=== PATIENT | female | born 1945 | race Caucasian/White ===

== ENCOUNTER 2018-02-20 09:11 | Day surgery (SDC) | payer OTHER ==
[~2018-02-20 09:11] MED LIST: LIDOCAINE 2% JELLY 6ML IN APPLICATOR. MM; ONDANSETRON PF 4 MG/2 ML VIAL. IV; PROCHLORPERAZINE 10 MG/2 ML VIAL. IV; fentaNYL PF VIAL 100 MCG/2 ML VIAL IV
[2018-02-20] MEDS ORDERED: LIDOCAINE 2% JELLY 6ML IN APPLICATOR. (10:05)
[2018-02-20] MEDS: PROPARACAINE 0.5% OPHTH SOLUTION 15ML BOTTLE. OS (10:24)
[2018-02-20] MEDS: PHENYLEPHRINE 10% OPHTH SOLUTION 5ML BOTTLE. OS ×3 (10:25→10:38)
[2018-02-20] MEDS: CYCLOPENTOLATE 1% OPTH SOLUTION 2ML BOTTLE. OS ×3 (10:25→10:38)
[2018-02-20] MEDS: IV RINGERS,LACTATED 1000ML 1,000 ML IV (10:31)
[2018-02-20] MEDS: CIPROFLOXACIN 0.3% OPHTH SOLUTION 5ML BOTTLE. OS (10:39)
[2018-02-20] MEDS ORDERED: MIDAZOLAM HCL/PF 2 MG/2 ML VIAL. (11:09)
[2018-02-20] MEDS: LIDOCAINE 1% PF 2 ML VIAL. ID (12:04)
[2018-02-20] MEDS: CHONDROIT-SOD-HYALURONATE KIT. (12:04)
[2018-02-20] MEDS: NEO/POLYMYX/DEXAMETH OPHTH OINTMENT 3.5GM TUBE. (12:12)
== END 2018-02-20 13:12 | disposition home or self-care (01) ==
LOC: SURG 09:11
DX: H25.12 Age-related nuclear cataract, left eye (principal); J44.9 Chronic obstructive pulmonary disease, unspecified; E03.9 Hypothyroidism, unspecified; Z72.89 Other problems related to lifestyle; Z88.2 Allergy status to sulfonamides; Z88.5 Allergy status to narcotic agent; Z79.899 Other long term (current) drug therapy; G47.33 Obstructive sleep apnea (adult) (pediatric); Z86.73 Personal history of transient ischemic attack (TIA), and cerebral infarction without residual deficits; Z87.891 Personal history of nicotine dependence; Z98.890 Other specified postprocedural states; I11.0 Hypertensive heart disease with heart failure; I50.9 Heart failure, unspecified; E78.00 Pure hypercholesterolemia, unspecified
CPT/HCPCS: 66984; C1780; J0171; J2250

== ENCOUNTER 2018-02-27 09:06 | Day surgery (SDC) | payer MEDICARE, OTHER ==
[~2018-02-27 09:06] MED LIST changes: +BALANCED SALT IRRIG OPHTH SOLN 15 ML BOTTLE.; +MORPHINE SULFATE 2 MG/ML DISP.SYRIN. IV
[2018-02-27] MEDS: IV RINGERS,LACTATED 1000ML 1,000 ML IV (09:59)
[2018-02-27] MEDS: PROPARACAINE 0.5% OPHTH SOLUTION 15ML BOTTLE. OD (10:01)
[2018-02-27] MEDS: PHENYLEPHRINE 10% OPHTH SOLUTION 5ML BOTTLE. OD ×3 (10:02→10:16)
[2018-02-27] MEDS: CYCLOPENTOLATE 1% OPTH SOLUTION 2ML BOTTLE. OD ×3 (10:02→10:16)
[2018-02-27] MEDS ORDERED: LIDOCAINE 2% JELLY 6ML IN APPLICATOR. (10:09)
[2018-02-27] MEDS ORDERED: MIDAZOLAM HCL/PF 2 MG/2 ML VIAL. (10:14)
[2018-02-27] MEDS: CIPROFLOXACIN 0.3% OPHTH SOLUTION 5ML BOTTLE. OD (10:17)
[2018-02-27] MEDS: NEO/POLYMYX/DEXAMETH OPHTH OINTMENT 3.5GM TUBE. (12:16)
[2018-02-27] MEDS: CHONDROIT-SOD-HYALURONATE KIT. (12:16)
[2018-02-27] MEDS: LIDOCAINE 1% PF 2 ML VIAL. ID (12:16)
== END 2018-02-27 13:41 | disposition home or self-care (01) ==
LOC: SURG 09:06
DX: H25.811 Combined forms of age-related cataract, right eye (principal); J44.9 Chronic obstructive pulmonary disease, unspecified; E03.9 Hypothyroidism, unspecified; Z72.89 Other problems related to lifestyle; Z79.899 Other long term (current) drug therapy; Z88.5 Allergy status to narcotic agent; Z98.42 Cataract extraction status, left eye; Z96.1 Presence of intraocular lens; E78.00 Pure hypercholesterolemia, unspecified; Z86.73 Personal history of transient ischemic attack (TIA), and cerebral infarction without residual deficits; I11.0 Hypertensive heart disease with heart failure; I50.9 Heart failure, unspecified; G47.33 Obstructive sleep apnea (adult) (pediatric); E66.9 Obesity, unspecified; Z98.890 Other specified postprocedural states; M19.90 Unspecified osteoarthritis, unspecified site; F17.200 Nicotine dependence, unspecified, uncomplicated
CPT/HCPCS: 66984; C1780; J0171; J2250

== ENCOUNTER 2019-04-28 09:10 | Emergency (ER) | payer OTHER ==
[~2019-04-28] VITALS: Ht 147.3 cm; Wt 158.8 kg
[~2019-04-28 09:10] MED LIST changes: -BALANCED SALT IRRIG OPHTH SOLN 15 ML BOTTLE.; +CRESTOR10 MG PO; +ESCI10TA2 PO; +FURO40TA4 PO; +GABA-585 PO; +GABA300C18 PO; +HYDR-2761 PO; +LEVO175T5 PO; -LIDOCAINE 2% JELLY 6ML IN APPLICATOR. MM; +LUBI8CAP4 PO; +MELA3TAB2 PO; -MORPHINE SULFATE 2 MG/ML DISP.SYRIN. IV; +NAPR220T70 PO; +ONDA4TAB11 PO; -ONDANSETRON PF 4 MG/2 ML VIAL. IV; +POTA20TA82 PO; -PROCHLORPERAZINE 10 MG/2 ML VIAL. IV; +SENN1TAB70 PO; +TRAM50TA PO; -fentaNYL PF VIAL 100 MCG/2 ML VIAL IV
--- NOTE | 2019-04-28 09:37 | PHYS DOC ---
Past Medical History Past Medical History: COPD, Sciatica, Other Additional Past Medical Histor: SLEEP APNEA,CHRONIC PAIN Past Surgical History: Other Additional Past Surgical Histo: UNKNOWN Alcohol Use: None Drug Use: None Adult General Chief Complaint Chief Complaint: MECHANICAL FALL HPI HPI Patient is a 73 year old female who presents with hx of hypertension, chronic right hip pain with sciatica, COPD, morbidly obesity who presents to the ED today complaining of 8 out of 10 right heel pain that began today after she slid out of her bed while trying to get dressed and fell, she states her right foot got caught in her electric wheelchair. Patient describes the pain as throbbing worse on movement. She states immobilization relieves the pain. Patient denies hitting her head on the ground. Denies any loss of consciousness. Denies any neck mid or low back pain. Review of Systems Review of Systems Constitutional: Denies fever or chills [] Eyes: Denies change in visual acuity, redness, or eye pain [] HENT: Denies nasal congestion or sore throat [] Respiratory: Denies cough or shortness of breath [] Cardiovascular: No additional information not addressed in HPI [] GI: Denies abdominal pain, nausea, vomiting, bloody stools or diarrhea [] : Denies dysuria or hematuria [] Musculoskeletal: Reports right hip pain Integument: Denies rash or skin lesions [] Neurologic: Denies headache, focal weakness or sensory changes [] All other systems were reviewed and found to be within normal limits, except as documented in this note. Allergies Allergies Allergies Coded Allergies Type Severity Reaction Last Updated Verified No Known Drug Allergies 05/01/18 No Physical Exam Physical Exam Constitutional: Morbidly obese patient, no acute distress, non-toxic appearance. [] HENT: Normocephalic, atraumatic, bilateral external ears normal, oropharynx moist, no oral exudates, nose normal. [] Eyes: PERRLA, EOMI, conjunctiva normal, no discharge. [] Neck: Normal range of motion, no tenderness, supple, no stridor. [] Cardiovascular:Heart rate regular rhythm, no murmur [] Lungs & Thorax: Chronic oxygen use noted. Bilateral breath sounds clear to auscultation [] Abdomen: Bowel sounds normal, soft, no tenderness, no masses, no pulsatile masses. [] Skin: Warm, dry, no erythema, no rash. [] Back: No tenderness, no CVA tenderness. [] Extremities: Morbidly obese patient, bilateral lower extremities with no obvious deformity. Chronic lymphedema noted to bilateral lower extremities with slight erythema to medial lower extremities, mild tenderness on palpation of the right heel. limited range of motion to bilateral lower extremities. +1 bilateral pedal pulses. Cap refill less than 2 seconds bilateral lower extremities. Neurologic: Alert and oriented X 3, normal motor function, normal sensory function, no focal deficits noted. [] Psychologic: Affect normal, judgement normal, mood normal. [] Current Patient Data Vital Signs Vital Signs Date Time Temp Pulse Resp B/P (MAP) Pulse Ox O2 Delivery O2 Flow Rate FiO2 04/28/19 09:10 97.8 74 21 145/62 (89) 95 Nasal Cannula 2.0 97.8 Lab Values Laboratory Tests Test 04/28/19 11:53 04/28/19 13:37 White Blood Count 6.4 x10^3/uL (4.0-11.0) Red Blood Count 4.01 x10^6/uL (3.50-5.40) Hemoglobin 11.4 g/dL (12.0-15.5) L Hematocrit 35.3 % (36.0-47.0) L Mean Corpuscular Volume 88 fL (79-100) Mean Corpuscular Hemoglobin 28 pg (25-35) Mean Corpuscular Hemoglobin Concent 32 g/dL (31-37) Red Cell Distribution Width 15.7 % (11.5-14.5) H Platelet Count 188 x10^3/uL (140-400) Neutrophils (%) (Auto) 70 % (31-73) Lymphocytes (%) (Auto) 19 % (24-48) L Monocytes (%) (Auto) 7 % (0-9) Eosinophils (%) (Auto) 3 % (0-3) Basophils (%) (Auto) 1 % (0-3) Neutrophils # (Auto) 4.5 x10^3/uL (1.8-7.7) Lymphocytes # (Auto) 1.2 x10^3/uL (1.0-4.8) Monocytes # (Auto) 0.5 x10^3/uL (0.0-1.1) Eosinophils # (Auto) 0.2 x10^3/uL (0.0-0.7) Basophils # (Auto) 0.0 x10^3/uL (0.0-0.2) Sodium Level 140 mmol/L (136-145) Potassium Level 4.6 mmol/L (3.5-5.1) Chloride Level 98 mmol/L (98-107) Carbon Dioxide Level 39 mmol/L (21-32) H Anion Gap 3 (6-14) L Blood Urea Nitrogen 29 mg/dL (7-20) H Creatinine 1.2 mg/dL (0.6-1.0) H Estimated GFR (Cockcroft-Gault) 44.2 BUN/Creatinine Ratio 24 (6-20) H Glucose Level 104 mg/dL (70-99) H Calcium Level 8.6 mg/dL (8.5-10.1) Total Bilirubin 0.8 mg/dL (0.2-1.0) Aspartate Amino Transferase (AST) 17 U/L (15-37) Alanine Aminotransferase (ALT) 13 U/L (14-59) L Alkaline Phosphatase 92 U/L (46-116) WE-Asx-D-Type Natriuretic Peptide 182 pg/mL (0-124) H Total Protein 7.1 g/dL (6.4-8.2) Albumin 3.2 g/dL (3.4-5.0) L Albumin/Globulin Ratio 0.8 (1.0-1.7) L Urine Collection Type U cath Urine Color Yellow Urine Clarity Clear Urine pH 7.0 Urine Specific Mamou 1.015 Urine Protein Negative mg/dL (NEG-TRACE) Urine Glucose (UA) Negative mg/dL (NEG) Urine Ketones (Stick) Negative mg/dL (NEG) Urine Blood Negative (NEG) Urine Nitrite Negative (NEG) Urine Bilirubin Negative (NEG) Urine Urobilinogen Dipstick 1.0 mg/dL (0.2 mg/dL) Urine Leukocyte Esterase Negative (NEG) Urine RBC 0 /HPF (0-2) Urine WBC 0 /HPF (0-4) Urine Squamous Epithelial Cells Few /LPF Urine Transitional Epithelial Cells Occ /LPF Urine Bacteria 0 /HPF (0-FEW) Laboratory Tests 04/28/19 11:53 Laboratory Tests 04/28/19 11:53 EKG EKG [] Radiology/Procedures Radiology/Procedures []PROCEDURE: VENOUS LOWER EXT BILATERAL Examination: Bilateral Lower Extremity Venous Doppler Ultrasound History: Bilateral lower extremity swelling Comparison: None Procedure: Long scale, color flow 2D and spectal waveform analysis images are obtained with and without compression in the area of the common femoral vein, superficial femoral vein - femoral vein junction, main femoral vein (superficial femoral vein) and popliteal vein. Veins of the proximal calf are also imaged. Findings: There is normal duplex flow, color flow and compressibility of all visualized vein segments. No evidence of deep venous thrombus is present. The bilateral posterior tibialis vein and peroneal veins could not be identified due to soft tissue edema and the patient body habitus. Limited study. Impression: 1. Limited study due to patient body habitus and soft tissue edema in the lower legs. 2. No evidence of deep venous thrombus in the visualized bilateral lower extremity venous system. Electronically signed by: Sy Almanzar MD (04/28/2019 12:28 PM) [id number] DICTATED and SIGNED BY: SY ALMANZAR MD DATE: 04/28/19 1228 PROCEDURE: FOOT RIGHT 3V Examination: FOOT RIGHT 3V History: Pain Comparison/Correlation: None Findings: Total of 3 images of the right foot were obtained. This includes crosstable lateral view. True lateral positioning was not obtained and as result evaluation is limited. Osteopenia is notable. No acute fracture or bony destruction. Relative short third and fourth metatarsal bones noted and this is presumably developmental. Linear lucent deformity of the posterior calcaneus at the plantar surface is of indeterminate significance. Impression: Marked osteopenia. Linear lucency of the posterior calcaneus of indeterminate significance. Correlate with prior exams if available. Dedicated lateral view should be considered for further assessment if clinically desired. Electronically signed by: Beltran Novak MD (04/28/2019 9:47 AM) [id number] DICTATED and SIGNED BY: BELTRAN NOVAK MD DATE: 04/28/19 0947 PROCEDURE: FOOT RIGHT 2V EXAM: 2 views right foot DATE: 04/28/2019 9:57 AM INDICATION: Right foot pain COMPARISON: No Prior FINDINGS/ IMPRESSION: 1. Marked osteopenia 2. Avulsion type fracture of the posterior/superior calcaneus with diffuse Achilles tendon thickening, possibly tendinosis or tear. 3. Marked soft tissue swelling about the right foot. Electronically signed by: Leandro Singer MD (04/28/2019 10:42 AM) [facility] [place] DICTATED and SIGNED BY: LEANDRO SINGER MD DATE: 04/28/19 1042 Course & Med Decision Making Course & Med Decision Making Pertinent Labs and Imaging studies reviewed. (See chart for details) This is a 73-year-old morbidly obese patient presenting to the ED today complaining of right heel pain after getting it caught in her electric wheelchair. Right foot x-rays interpreted by radiologist- Avulsion type fracture of the posterior/superior calcaneus with diffuse Achilles tendon thickening, possibly tendinosis or tear. Spoke with Dr. Lopes, he requested we put patient in a posterior leg splint and have recent follow-up in the clinic. Patient's daughter to the ED she requesting we will get venous Doppler of patient bilateral lower extremities because patient was diagnosed with lymphedema and he supposed to have venous Doppler is done on Sunday. She states she can't wait until then she is concerned patient could have a blood clot. Venous Dopplers of bilateral lower extremities were negative for any acute findings. Labs are negative. Patient was discharged to home. Follow-up with PCP and orthopedic doctor in the course of this week or next week. Patient was placed in posterior leg splint by the airbrush artist technical, neurovascular exam is intact Dragon Disclaimer Dragon Disclaimer This electronic medical record was generated, in whole or in part, using a voice recognition dictation system. Departure Departure Impression: Primary Impression: Closed fracture of heel bone Additional Impression: Lymphedema Disposition: HOME, SELF-CARE Condition: STABLE Referrals: LA[facility] PANCHAL MD (PCP) follow up this week LINDA LOPES MD follow up this week Patient Instructions: Avulsion Fracture Additional Instructions: You were evaluated in the emergency, and noted to have avulsion fracture of the heel. Try to ice and elevate the extremity. Follow-up with the orthopedic doctor provided as well as your primary care doctor in the course of this week. Problem Qualifiers Primary Impression: Closed fracture of heel bone Encounter type: initial encounter Calcaneus location: tuberosity Fracture morphology: avulsion Fracture alignment: nondisplaced Laterality: right Qualified Codes: S92.034A - Nondisplaced avulsion fracture of tuberosity of right calcaneus, initial encounter for closed fracture SUZANNE GRAVES APRN Apr 28, 2019 09:37
--- NOTE | 2019-04-28 09:50 | RAD ---
Examination: FOOT RIGHT 3V History: Pain Comparison/Correlation: None Findings: Total of 3 images of the right foot were obtained. This includes crosstable lateral view. True lateral positioning was not obtained and as result evaluation is limited. Osteopenia is notable. No acute fracture or bony destruction. Relative short third and fourth metatarsal bones noted and this is presumably developmental. Linear lucent deformity of the posterior calcaneus at the plantar surface is of indeterminate significance. Impression: Marked osteopenia. Linear lucency of the posterior calcaneus of indeterminate significance. Correlate with prior exams if available. Dedicated lateral view should be considered for further assessment if clinically desired. Electronically signed by: Beltran Sparrow MD (04/28/2019 9:47 AM) [id number]
--- NOTE | 2019-04-28 10:44 | RAD ---
EXAM: 2 views right foot DATE: 04/28/2019 9:57 AM INDICATION: Right foot pain COMPARISON: No Prior FINDINGS/ IMPRESSION: 1. Marked osteopenia 2. Avulsion type fracture of the posterior/superior calcaneus with diffuse Achilles tendon thickening, possibly tendinosis or tear. 3. Marked soft tissue swelling about the right foot. Electronically signed by: Leandro Dahl MD (04/28/2019 10:42 AM) [facility]
[2019-04-28 12:12] LABS: BASO % 1 % (0-3); EOS # 0.2 x10^3/uL (0.0-0.7); EOS % 3 % (0-3); HEMATOCRIT 35.3 % (36.0-47.0); HEMOGLOBIN 11.4 g/dL (12.0-15.5); LYMPH # 1.2 x10^3/uL (1.0-4.8); LYMPH % 19 % (24-48); MEAN CORPUSCULAR HEMOGLOBIN 28 pg (25-35); MEAN CORPUSCULAR HGB CONC 32 g/dL (31-37); MEAN CORPUSCULAR VOLUME 88 fL (79-100); MONO # 0.5 x10^3/uL (0.0-1.1); MONO % 7 % (0-9); NEUT # 4.5 x10^3/uL (1.8-7.7); NEUT % 70 % (31-73); PLATELET COUNT 188 x10^3/uL (140-400); RED BLOOD COUNT 4.01 x10^6/uL (3.50-5.40); RED CELL DISTRIBUTION WIDTH 15.7 % (11.5-14.5); WHITE BLOOD COUNT 6.4 x10^3/uL (4.0-11.0)
[2019-04-28 12:21] LABS: CALCIUM 8.6 mg/dL (8.5-10.1); CREATININE 1.2 mg/dL (0.6-1.0); GFR 44.2; POTASSIUM 4.6 mmol/L (3.5-5.1)
[2019-04-28 12:30] LABS: ALBUMIN 3.2 g/dL (3.4-5.0); ALBUMIN/GLOBULIN RATIO 0.8 (1.0-1.7); TOTAL BILIRUBIN 0.8 mg/dL (0.2-1.0); TOTAL PROTEIN 7.1 g/dL (6.4-8.2)
--- NOTE | 2019-04-28 12:30 | RAD ---
Examination: Bilateral Lower Extremity Venous Doppler Ultrasound History: Bilateral lower extremity swelling Comparison: None Procedure: Long scale, color flow 2D and spectal waveform analysis images are obtained with and without compression in the area of the common femoral vein, superficial femoral vein - femoral vein junction, main femoral vein (superficial femoral vein) and popliteal vein. Veins of the proximal calf are also imaged. Findings: There is normal duplex flow, color flow and compressibility of all visualized vein segments. No evidence of deep venous thrombus is present. The bilateral posterior tibialis vein and peroneal veins could not be identified due to soft tissue edema and the patient body habitus. Limited study. Impression: 1. Limited study due to patient body habitus and soft tissue edema in the lower legs. 2. No evidence of deep venous thrombus in the visualized bilateral lower extremity venous system. Electronically signed by: Sy Almanzar MD (04/28/2019 12:28 PM) [place] [id number]
[2019-04-28 13:44] LABS: BILIRUBIN,URINE NEGATIVE (NEG); CLARITY,URINE CLEAR; COLOR,URINE YELLOW; NITRITE,URINE NEGATIVE (NEG); PROTEIN,URINE NEGATIVE (NEG-TRACE)
[2019-04-28 13:54] LABS: BACTERIA,URINE 0 /HPF (0-FEW); RBC,URINE 0 /HPF (0-2); SQUAMOUS EPITHELIAL CELL,UR FEW /LPF; WBC,URINE 0 /HPF (0-4)
[2019-04-28 15:00] VITALS: BP 136/60
== END 2019-04-28 15:33 | disposition home or self-care (01) ==
LOC: ER 09:10
DX: S92.034A Nondisplaced avulsion fracture of tuberosity of right calcaneus, initial encounter for closed fracture (principal); I89.0 Lymphedema, not elsewhere classified; M25.551 Pain in right hip; I10 Essential (primary) hypertension; J44.9 Chronic obstructive pulmonary disease, unspecified; G89.29 Other chronic pain; M85.871 Other specified disorders of bone density and structure, right ankle and foot; E66.01 Morbid (severe) obesity due to excess calories; Z68.45 Body mass index [BMI] 70 or greater, adult; W23.0XXA Caught, crushed, jammed, or pinched between moving objects, initial encounter; Y93.89 Activity, other specified; Y92.89 Other specified places as the place of occurrence of the external cause; Y99.8 Other external cause status
CPT/HCPCS: 29515; 36415; 73620; 73630; 80053; 81001; 83880; 85025; 93970; 99285

== ENCOUNTER → 2020-10-28 | Outpatient (CLI) | payer OTHER, MEDICAID ==
[2019-11-17 15:00] VITALS: BP 119/37
[~2020-10-28] VITALS: Ht 147.3 cm; Wt 140.6 kg
[~2020-10-28] MED LIST changes: +ALBU2.5V8 IH; +BUDE10.2 IH; +BUME1TAB3 PO; +DICL100G54 TP; -ESCI10TA2 PO; +ESCI10TA5 PO; +LUBI24CA7 PO; -MELA3TAB2 PO; +MELA3TAB4 PO; +NORMAL SALINE IV ONE; +NYST15CR TP; +ONDA-84 PO; -ONDA4TAB11 PO; +PANT40TA77 PO; +POTA20TA4 PO; -POTA20TA82 PO; +SINCALIDE IV ONE; +TRIA15OI TP
--- NOTE | 2020-10-28 11:31 | RAD ---
EXAM: Abdomen sonogram. HISTORY: Epigastric pain. TECHNIQUE: Sonographic imaging of the abdomen was performed. COMPARISON: None. FINDINGS: The liver is enlarged. There is hepatic steatosis. No focal hepatic lesion is seen. There i s cholelithiasis. There is no cholecystitis. The common bile duct is normal in caliber. The kidneys, pancreas, spleen and visualized portions the aorta and inferior vena cava are unremarkable. IMPRESSION: 1. Hepatomegaly and hepatic steatosis. 2. Cholelithiasis. Electronically signed by: Sarah Alonso MD (10/28/2020 11:29 AM) [id number]
--- NOTE | 2020-10-28 13:32 | RAD ---
Examination: Hepatobiliary Scan: History: Right upper quadrant pain. Technique: 5.5 mCi technetium 99m Choletec was administered intravenously and spot views were obtain ed on the gamma camera for a Nuclear Medicine hepatobiliary scan. 2.8 mcg of CCK drip was administered over 30 minutes and the region of interest was drawn around the gallbladder and gallbladder ejection fraction was calculated. Findings: There is rapid uptake of activity from the blood pool and concentration in the liver. Activity seen i n the gallbladder and small bowel. There is a rapid response of the gallbladder to CCK and the gallbladder ejection fraction is 93% whic h is normal. Impression: Normal hepatobiliary scan. Normal gallbladder function. Electronically signed by: Sy Almanzar MD (10/28/2020 1:30 PM) [id number]
== END ==
LOC: US 09:39
PROVIDERS: ATTEND Internal Medicine Gastroenterology
DX: K80.20 Calculus of gallbladder without cholecystitis without obstruction (principal); K76.0 Fatty (change of) liver, not elsewhere classified; R16.0 Hepatomegaly, not elsewhere classified
CPT/HCPCS: 76700; 78227; A9537; J2805

== ENCOUNTER → 2021-01-18 | Outpatient (CLI) | payer OTHER, MEDICAID ==
[2019-11-17 15:00] VITALS: BP 119/37
[~2021-01-18] MED LIST changes: -ESCI10TA5 PO; +ESCI10TA90 PO; -NORMAL SALINE IV ONE; -SINCALIDE IV ONE
--- NOTE | 2021-01-18 14:13 | RAD ---
EXAM: Nuclear gastric emptying scan. HISTORY: Epigastric pain. COMPARISON: None. TECHNIQUE: Serial static images were obtained over the stomach following oral administration of 2 mCi 99m-Tc sulfur colloid. FINDINGS: The stomach empties into the small bowel without evidence of reflux in the area of the esop hagus. Gastric retention percents: 1 hour 67% (normal range 34.8-91%) 2 hour 76% (normal range 2.7-60%) 3 hour 58% (normal range 0.5-28%) 4 hour 32% (normal range 0-10%) The estimated time for half emptying of gastric contents, i.e. 'gastric emptying time' is 199 minutes (normal is 66 +/- 22 minutes). IMPRESSION: Delayed gastric emptying. There is increase in gastric retention between 1 and 2 hour indy ges which may be artifactual or due to a component of reflux. Electronically signed by: Sarah Alonso MD (01/18/2021 2:11 PM) [facility]
== END ==
LOC: NM 08:46
PROVIDERS: ATTEND Internal Medicine Gastroenterology
DX: K30 Functional dyspepsia (principal); K31.89 Other diseases of stomach and duodenum
CPT/HCPCS: 78264; A9541

== ENCOUNTER 2021-02-03 13:41 | Inpatient (IN) | payer OTHER, MEDICAID ==
[~2021-02-03] VITALS: Ht 147.3 cm; Wt 144.0 kg
--- NOTE | 2021-02-03 13:53 | PHYS DOC ---
Past Medical History Past Medical History: COPD, Sciatica, Other Additional Past Medical Histor: SLEEP APNEA,CHRONIC PAIN Past Surgical History: Other Additional Past Surgical Histo: UNKNOWN Smoking Status: Never Smoker Alcohol Use: None Drug Use: None General Adult EDM: Chief Complaint: SHORTNESS OF BREATH HPI: HPI: 75-year-old female past medical history of anasarca with lymphedema both legs, DESHAWN, morbid obesity, cor pulmonale, hypothyroidism and right heart failure, presents the ED brought in by EMS on BiPAP, concern for decreased alertness and hypoxia. I was called by home health aide who was concerned patient looked dehydrated, was confused and slept all morning. Daughter later present in ED and reports she found pt at home, blue in the face, not on oxygen and breathing hard. Pt is a full code. No history of Covid. Patient last left the house 3 weeks ago for GI study-was diagnosed with gastroparesis by Dr. Venegas and started erythromycin last night. Has not had her daily medications today. Is a full code. Was intubated in 2017 at [facility]. Review of Systems: Review of Systems: Unable to be obtained due to mental status/medical condition Heart Score: C/O Chest Pain: N/A Risk Factors: Risk Factors: DM, Current or recent (<one month) smoker, HTN, HLP, family history of CAD, obesity. Risk Scores: Score 0 - 3: 2.5% MACE over next 6 weeks - Discharge Home Score 4 - 6: 20.3% MACE over next 6 weeks - Admit for Clinical Observation Score 7 - 10: 72.7% MACE over next 6 weeks - Early Invasive Strategies Allergies: Allergies: Allergies Coded Allergies Type Severity Reaction Last Updated Verified No Known Drug Allergies 05/01/18 No Physical Exam: PE: Constitutional: [id number] = GCS9, afebrile, hypertensive HENT: Normocephalic, atraumatic, blue pursed lips on arrival Eyes: EOMI, conjunctiva normal, no discharge, bilateral chemosis with edematous eyelids Neck: Normal range of motion, supple, Cardiovascular: S1/2 present, regular rhythm Lungs & Thorax: Speaking in full sentences, bilateral equal chest rise, no tachypnea or increased work of breathing Abdomen: soft, no tenderness, Skin: Warm, dry, significant anasarca, short fingers/toes Extremities: No tenderness, no cyanosis, chronic lymphedema Neurologic: Alert, no focal deficits noted. [] Psychologic: Affect normal, judgement normal, mood normal. [] EKG: EKG: Sinus rhythm 66 bpm, no axis deviation, normal intervals, no T wave inversions, no ST elevations or ST depressions Radiology/Procedures: Radiology/Procedures: []IMAGING REPORT Signed PATIENT: TARAH ACEVEDO AACCOUNT: [id number] : 1945 LOCATION: ER AGE: 75 SEX: F EXAM STATUS: REG ER ORD. PHYSICIAN: STEVEN LUIS DO REASON: soa PROCEDURE: PORTABLE CHEST 1V EXAM: Chest, single view. HISTORY: Shortness of air. COMPARISON: 11/14/2019 FINDINGS: A frontal view of the chest is obtained. There has been slight interval increase in diffuse interstitial infiltrate. There is stable suspected small pleural effusions. There is cardiomegaly. There is no pneumothorax. IMPRESSION: 1. Slight interval increase in diffuse interstitial infiltrate. 2. Stable small pleural effusions and cardiomegaly. Electronically signed by: Sarah Waggoner MD (02/03/2021 2:47 PM) [id number] DICTATED and SIGNED BY: SARAH WAGGONER MD DATE: 02/03/21 [id number] 0 IMAGING REPORT Signed PATIENT: TARAH ACEVEDO AACCOUNT: [id number] : 1945 LOCATION: ER AGE: 75 SEX: F EXAM STATUS: REG ER ORD. PHYSICIAN: STEVEN LUIS DO REASON: wide mediastinum, hypercapneic, r/o dissection PROCEDURE: CT ANGIO CHEST ABD PELVIS Exam: CT of chest, abdomen and pelvis with contrast INDICATION: Widened mediastinum TECHNIQUE: Sequential axial images through the chest, abdomen and pelvis obtained before and after the administration of 90 mL of Isovue-370 IV contrast. Sagittal and coronal reformatted images were reconstructed from the axial data and reviewed. 3-D reformatted images were reconstructed from the axial data and reviewed. Exposure: One or more of the following in the visualized dose reduction techniques were utilized for this examination: 1. Automated exposure control 2. Adjustment of the MA and/or KV according to patient size 3. Use of iterative of reconstructive technique Comparisons: Chest x-ray same day FINDINGS: No enlarged mediastinal lymph nodes are identified. Heart size is normal. No pericardial effusion. Thoracic aorta has a normal course and caliber. Pulmonary artery is not enlarged. Airways are patent. Strandy opacities at dependent portion lungs likely representing atelectasis. No consolidation or pneumothorax. No suspicious lung nodules. Small right and trace left pleural effusion. Liver, spleen, pancreas and adrenals are unremarkable. Gallbladder is distended with gallstones. No perinephric inflammation or hydronephrosis. No renal or ureteral calculi are identified. Bladder is decompressed with Fernández balloon in bladder. Uterus is not enlarged. No abnormal adnexal mass. Diverticulosis is noted in the sigmoid colon without evidence of acute diverticulitis. Moderate amount stool noted in the colon. No free intra- abdominal air or fluid. No obstruction. Abdominal aorta has a normal course caliber. Abdominal vasculature is patent. No enlarged intra-abdominal lymph nodes are identified. No suspicious osseous lesions or acute fractures. IMPRESSION: 1. Normal appearance of the aorta without evidence of dissection, aneurysm or intramural hematoma. 2. Distended gallbladder with gallstones. Correlate with symptomatology to determine the need for further evaluation with ultrasound. 3. Diverticulosis without evidence of acute diverticulitis. Electronically signed by: Stephanie Herrera MD (02/03/2021 5:37 PM) [facility] DICTATED and SIGNED BY: STEPHANIE HERRERA MD DATE: 02/03/21 [id number] 0 IMAGING REPORT Signed PATIENT: TARAH ACEVEDO AACCOUNT: [id number] : 1945 LOCATION: ER AGE: 75 SEX: F EXAM STATUS: REG ER ORD. PHYSICIAN: STEVEN LUIS DO REASON: ams, hypoxic failure-PT BREATHING CAUSING MOTION ARTIFACT PROCEDURE: CT HEAD WO CONTRAST Exam performed: CT scan of the head without contrast. Date of Service: 02/03/2021. Comparison: None available. Clinical History: Hypoxic failure. Technique: Helical acquisitions are obtained from the foramen magnum to the vertex without intravenous administration of contrast. Findings: Study somewhat limited due to motion blur. Mild prominence of cortical sulci and ventricular system is noted consistent with mild age-related atrophy. Normal bird-white differentiation is maintained. There is no extra axial fluid collection, intraparenchymal hemorrhage or mass lesion. The visualized portions of the orbits, paranasal sinuses and the masto id air cells appear clear. The calvarium is intact. Impression: 1. No acute intracranial process detected. PQRS Compliance Statement: One or more of the following individualized dose reduction techniques were utilized for this examination: 1. Automated exposure control 2. Adjustment of the mA and/or kV according to patient size 3. Use of iterative reconstruction technique Electronically signed by: Elizabet Gutierrez MD (02/03/2021 3:01 PM) [id number] DICTATED and SIGNED BY: ELIZABET GUTIERREZ MD DATE: 02/03/21 [id number] 0 Course & Med Decision Making: Course & Med Decision Making Pertinent Labs and Imaging studies reviewed. (See chart for details) COVID-19 CRITERIA: The patient was evaluated during the global COVID-19 pandemic, and that diagnosis was suspected/considered upon their initial pre sentation. Their evaluation, treatment and testing was consistent with current guidelines for patients who present with complaints or symptoms that may be related to COVID-19. Concern for hypercapnic respiratory failure in the setting of DESHAWN and oxygen noncompliance, covid test pending (daughter requested). Patient's mental status improved while in the ED and pt was making coherent sentences. Patient also with uncontrolled hypertension. Will admit for further medical management. Patient accepted by Jess, pulmonology consultation placed. I discussed with patient's daughter who is at bedside, patient is a full code. I have spoken with the patient and/or caregivers. I have explained the patient's condition, diagnosis and treatment plan based on the information available to me at this time. I have answered the patient's and/or caregivers questions and answered any concerns. The patient and/or caregivers have as good an understanding of the patient's diagnosis, condition and treatment plan as can be expected at this point. The patient has been stabilized within the capability of the emergency department. The patient will be transported for further care and management or will be moved to an observation or inpatient s ervice. I have communicated with the staff or medical practitioner taking over this patient's care. Dragon Disclaimer: Dragon Disclaimer: This electronic medical record was generated, in whole or in part, using a voice recognition dictation system. Departure Departure Impression: Primary Impression: Acute hypercapnic respiratory failure Additional Impressions: Person under investigation for COVID-19 Hypertension Disposition: ADMITTED INPATIENT Admitting Physician: Landry Panchal Condition: GUARDED Referrals: LANDRY PANCHAL MD (PCP) [facility] Feb 03, 2021 13:53
[2021-02-03 14:08] LABS: BASE EXCESS COOX 7 mmol/L (-3-3); HCO3 COOX 36 mmol/L (21-28); METHEMOGLOBIN 0.3 % (0.0-1.9); OXYHEMOGLOBIN 92.8 %; PCO2 COOX 75 mmHg (35-46); PO2 COOX 79 mmHg (65-108); SAT O2 COOX 94 % (92-99)
[2021-02-03] MEDS ORDERED: VANCOMYCIN PER PHARMACY MC PRN (14:15)
[2021-02-03 14:27] LABS: BASO % 1 % (0-3); EOS # 0.1 x10^3/uL (0.0-0.7); EOS % 1 % (0-3); HEMATOCRIT 37.1 % (36.0-47.0); HEMOGLOBIN 11.7 g/dL (12.0-15.5); LYMPH # 1.2 x10^3/uL (1.0-4.8); LYMPH % 12 % (24-48); MEAN CORPUSCULAR HEMOGLOBIN 28 pg (25-35); MEAN CORPUSCULAR HGB CONC 32 g/dL (31-37); MEAN CORPUSCULAR VOLUME 89 fL (79-100); MONO # 0.5 x10^3/uL (0.0-1.1); MONO % 5 % (0-9); NEUT # 8.2 x10^3/uL (1.8-7.7); NEUT % 82 % (31-73); PLATELET COUNT 184 x10^3/uL (140-400); RED BLOOD COUNT 4.19 x10^6/uL (3.50-5.40); RED CELL DISTRIBUTION WIDTH 16.1 % (11.5-14.5); WHITE BLOOD COUNT 10.1 x10^3/uL (4.0-11.0)
[2021-02-03] MEDS ORDERED: PIPERACILLIN/TAZOBACTAM 4.5 GM in IV NORMAL SALINE 100ML 100 ML IV ONE (14:30)
--- NOTE | 2021-02-03 14:49 | RAD ---
EXAM: Chest, single view. HISTORY: Shortness of air. COMPARISON: 11/14/2019 FINDINGS: A frontal view of the chest is obtained. There has been slight interval increase in diffuse interstitial infiltrate. There is stable suspected small pleural effusions. There is cardiomegaly. T here is no pneumothorax. IMPRESSION: 1. Slight interval increase in diffuse interstitial infiltrate. 2. Stable small pleural effusions and cardiomegaly. Electronically signed by: Sarah Alonso MD (02/03/2021 2:47 PM) [id number]
[2021-02-03 14:53] LABS: CREATININE 0.8 mg/dL (0.6-1.0); GFR 70.1; POTASSIUM 5.2 mmol/L (3.5-5.1)
[2021-02-03 15:00] LABS: ALBUMIN 3.9 g/dL (3.4-5.0); DIRECT BILIRUBIN 0.2 mg/dL (0.0-0.2); TOTAL PROTEIN 7.8 g/dL (6.4-8.2)
[2021-02-03] MEDS ORDERED: VANCOMYCIN 2 GM in IV NORMAL SALINE 500ML BAG 500 ML IV ONE (15:00)
[2021-02-03] MEDS ORDERED: MAGNESIUM SULFATE 2GM 50 ML IV ONE (15:00)
--- NOTE | 2021-02-03 15:04 | RAD ---
Exam performed: CT scan of the head without contrast. Date of Service: 02/03/2021. Comparison: None available. Clinical History: Hypoxic failure. Technique: Helical acquisitions are obtained from the foramen magnum to the vertex without intravenou s administration of contrast. Findings: Study somewhat limited due to motion blur. Mild prominence of cortical sulci and ventricular system is noted consistent with mild age-related at rophy. Normal bird-white differentiation is maintained. There is no extra axial fluid collection, in traparenchymal hemorrhage or mass lesion. The visualized portions of the orbits, paranasal sinuses a nd the mastoid air cells appear clear. The calvarium is intact. Impression: 1. No acute intracranial process detected. PQRS Compliance Statement: One or more of the following individualized dose reduction techniques were utilized for this examinat ion: 1. Automated exposure control 2. Adjustment of the mA and/or kV according to patient size 3. Use of iterative reconstruction technique Electronically signed by: Elizabet Gutierrez MD (02/03/2021 3:01 PM) [id number]
[2021-02-03 15:12] LABS: BILIRUBIN,URINE NEGATIVE (NEG); CLARITY,URINE CLEAR; COLOR,URINE YELLOW; NITRITE,URINE NEGATIVE (NEG); PROTEIN,URINE >=300 mg/dL (NEG-TRACE)
[2021-02-03] MEDS ORDERED: IOHEXOL 350 MG/ML 100 ML VIAL. IV ONE (15:15)
[2021-02-03 15:19] LABS: HYALINE CASTS, URINE FEW /HPF
[2021-02-03 15:20] LABS: BACTERIA,URINE 0 /HPF (0-FEW); RBC,URINE 0 /HPF (0-2); WBC,URINE 0 /HPF (0-4)
--- NOTE | 2021-02-03 16:44 | NUR ---
Pharmacy Vancomycin Dosing Note S: Consulted to monitor and dose vancomycin started 02/03/21. O: TARAH ACEVEDO is a 75 year old F with CAP,Empiric treatment Other Antibiotics: ZOSYN X1 IN ED LABS: Last BUN: 22 Last Creatinine: 0.8 Creatinine Clearance: 68 mL/min Last WBC: 10.1 Vancomycin Dosing: Dosing Weight: Adjusted Target Trough: 10-20 A: Based on: VANCO dosing guidelines P: 1. Begin Vancomycin 2000mg LOAD dose, then 1250 mg IV q12h 2. Follow up Trough level on 02/05/21 at 0530 3. Pharmacy will continue to monitor, follow and adjust therapy as needed. KAREEN SANTOS, [facility], 02/03/21 [id number]
--- NOTE | 2021-02-03 17:39 | RAD ---
Exam: CT of chest, abdomen and pelvis with contrast INDICATION: Widened mediastinum TECHNIQUE: Sequential axial images through the chest, abdomen and pelvis obtained before and after th e administration of 90 mL of Isovue-370 IV contrast. Sagittal and coronal reformatted images were rec onstructed from the axial data and reviewed. 3-D reformatted images were reconstructed from the axial data and reviewed. Exposure: One or more of the following in the visualized dose reduction techniques were utilized for this examination: 1. Automated exposure control 2. Adjustment of the MA and/or KV according to patient size 3. Use of iterative of reconstructive technique Comparisons: Chest x-ray same day FINDINGS: No enlarged mediastinal lymph nodes are identified. Heart size is normal. No pericardial effusion. Thoracic aorta has a normal course and caliber. Pulmon tg artery is not enlarged. Airways are patent. Strandy opacities at dependent portion lungs likely representing atelectasis. No consolidation or pneumothorax. No suspicious lung nodules. Small right and trace left pleural effusion. Liver, spleen, pancreas and adrenals are unremarkable. Gallbladder is distended with gallstones. No perinephric inflammation or hydronephrosis. No renal or ureteral calculi are identified. Bladder is decompressed with Fernández balloon in bladder. Uterus is not enlarged. No abnormal adnexal ma ss. Diverticulosis is noted in the sigmoid colon without evidence of acute diverticulitis. Moderate amoun t stool noted in the colon. No free intra-abdominal air or fluid. No obstruction. Abdominal aorta has a normal course caliber. Abdominal vasculature is patent. No enlarged intra-abdominal lymph nodes are identified. No suspicious osseous lesions or acute fractures. IMPRESSION: 1. Normal appearance of the aorta without evidence of dissection, aneurysm or intramural hematoma. 2. Distended gallbladder with gallstones. Correlate with symptomatology to determine the need for fu rther evaluation with ultrasound. 3. Diverticulosis without evidence of acute diverticulitis. Electronically signed by: Stephanie Gaitan MD (02/03/2021 5:37 PM) [facility]
[2021-02-03 18:04] LABS: BARBITURATES NEG (NEG); BENZODIAZEPINES NEG (NEG); CANNABINOIDS NEG (NEG); COCAINE NEG (NEG); METHADONE NEG (NEG); OPIATES POS (NEG); PHENCYCLIDINE NEG (NEG)
[2021-02-03 18:08] LABS: AMPHETAMINE/METHAMPHETAMINE NEG (NEG)
[2021-02-03] MEDS ORDERED: hydrALAZINE 20 MG/ML VIAL. IVP ONE (18:15)
[2021-02-03 20:48] VITALS: BP 111/78
[2021-02-03 22:18] VITALS: BP 132/50
[2021-02-04 03:59] VITALS: BP 142/55
[2021-02-04] MEDS ORDERED: HYDR-2769 PO (05:29)
[2021-02-04] MEDS ORDERED: SUCR1TAB PO (05:29)
[2021-02-04] MEDS ORDERED: FAMO20TA5 PO (05:29)
[2021-02-04] MEDS ORDERED: VANCOMYCIN 1.25 GM in IV NORMAL SALINE 250ML 250 ML IV SCH (06:00)
[2021-02-04 07:00] VITALS: BP 173/83
[2021-02-04 08:26] LABS: BASE EXCESS ABG 9 mmol/L (-3-3); HCO3 ABG 37 mmol/L (21-28); PO2 ABG 87 mmHg (65-108); SAT O2 ABG 96 % (92-99)
--- NOTE | 2021-02-04 08:43 | PDOC ---
Provider Note Date of Service: DATE: 02/04/21 TIME: 08:43 Provider Note H&P dictated #[id number] Justifications for Admission Other Justification LAKE PANCHAL MD Feb 04, 2021 08:43
[2021-02-04] MEDS ORDERED: IPRATRPIUM/ALBUTEROL 0.5/2.5MG 3 ML NEBU. NEB PRN (08:45)
[2021-02-04 08:47] LABS: PCO2 ABG 70 mmHg (35-46)
[2021-02-04] MEDS ORDERED: ONDANSETRON ODT 4 MG TAB.RAPDIS. PO PRN (09:00)
[2021-02-04] MEDS ORDERED: VANCOMYCIN PER PHARMACY MC PRN (09:00)
[2021-02-04] MEDS ORDERED: NON FORMULARY ITEM (Budesonide/Formoterol Fumarate (Symbicort 160-4.5 Mcg Inhaler) 2 PUFF) IH SCH (09:00)
[2021-02-04] MEDS ORDERED: NON FORMULARY ITEM (Escitalopram Oxalate 10 MG) PO SCH (09:00)
[2021-02-04] MEDS ORDERED: ALBUTEROL SULFATE 2.5 MG/3 ML NEBU. NEB PRN (09:15)
[2021-02-04] MEDS: FAMOTIDINE 20 MG TABLET. PO SCH ×2 (10:00→20:32)
[2021-02-04] MEDS: BUDESONIDE 0.5 MG/2 ML NEBU. NEB SCH ×2 (10:00→20:27)
[2021-02-04] MEDS: CITALOPRAM 20 MG TABLET. PO SCH (10:00)
[2021-02-04] MEDS ORDERED: ENOXAPARIN 40 MG/0.4 ML SYRINGE. SQ SCH (10:00)
[2021-02-04] MEDS ORDERED: ALBUTEROL SULFATE 2.5 MG/3 ML NEBU. NEB SCH (10:00)
[2021-02-04] MEDS: LUBIPROSTONE 24 MCG CAPSULE PO SCH (10:00)
[2021-02-04] MEDS: BUMETANIDE 1 MG TABLET. PO SCH (10:00)
[2021-02-04] MEDS: IV NORMAL SALINE 1000ML BAG 1,000 ML IV SCH ×2 (10:00→23:20)
[2021-02-04] MEDS: GABAPENTIN 300 MG CAPSULE. PO SCH ×3 (10:00→20:33)
[2021-02-04] MEDS: SUCRALFATE 1 GM TABLET. PO SCH ×2 (10:00→20:32)
[2021-02-04] MEDS: methylPREDNISolone SOD SUCC PF 40 MG/ML VIAL. IV SCH ×3 (10:00→22:44)
[2021-02-04] MEDS: POTASSIUM CHLORIDE 20 MEQ TABLET.ER. PO SCH ×2 (10:01→17:00)
[2021-02-04] MEDS: NYSTATIN 100,000 UNIT/GM TOPICAL CREAM 15GM TUBE. TP SCH ×2 (10:02→20:34)
[2021-02-04] MEDS: TRIAMCINOLONE ACETONIDE 0.1% TOPICAL OINTMENT 15GM TUBE. TP SCH ×2 (10:03→20:34)
--- NOTE | 2021-02-04 10:03 | HP ---
ADMIT DATE: 02/03/2021 PATIENT'S LOCATION: [facility]. REASON FOR ADMISSION TO THE HOSPITAL: Respiratory failure, COPD with hypercapnic respiratory failure. HISTORY OF PRESENT ILLNESS: The patient, she is a 75-year-old female with history of obstructive sleep apnea, COPD. She is on oxygen 2 liters at daytime and also on a CPAP machine she uses daily. She lives at home with a nurse and also she has a daughter who checks on. Says the patient looked confused, decreased alertness and breathing hard. The patient was seen by the daughter at home and she was found blue in the face and with respiratory failure and the patient was brought by the paramedics. She was placed on BiPAP and had a CT head, was negative. CT chest negative. COVID test is pending. The patient was last intubated in 2017, respiratory failure. She had gallstones. Had a workup including sonogram, PIPIDA scan and a gastric emptying study, which shows she has gastroparesis. She was placed on erythromycin by the GI. This was started 1-2 days ago. PAST MEDICAL HISTORY: History of morbid obesity, sleep apnea, right heart failure, lymphedema, cor pulmonale, arthritis, hypothyroidism, anxiety, depression, chronic pain. PAST SURGICAL HISTORY: No major surgeries. ALLERGIES: TO CODEINE. She can take hydrocodone. MEDICATIONS: Escitalopram, Lasix, gabapentin, levothyroxine, Amitiza, potassium, Crestor, tramadol and then hydrocodone because tramadol is not helping, Bumex 1 mg twice a day. The patient was started on erythromycin one to two days ago for gastroparesis. PERSONAL HISTORY: Smoker in the past, quit many years ago. She is on home oxygen and a CPAP at home. Lives at home. She has a daughter and comes and visits her. She has a motorized scooter, hospital bed. She also has home caregivers most of the time at home. FAMILY HISTORY: Unremarkable. REVIEW OF SYSTEMS: The patient is awake and answering questions. She says she has been using CPAP daily and oxygen. Denies any major problems yesterday. PHYSICAL EXAMINATION:Pt on BIPAP mask. GENERAL: On examination, the patient is morbidly obese, BMI 67. VITAL SIGNS: Weighs 145 kg, height maybe 5 feet. HEENT: Head atraumatic. Pupils are equal. Oral cavity, the patient is on BiPAP. NECK: Supple, short neck. CHEST: Symmetrical. CARDIOVASCULAR: S1, S2. LUNGS: Very minimal wheezing, few crackles at the base. ABDOMEN: Obese. No mass palpable. EXTERNAL GENITALIA: I am not sure if the patient has a Fernández catheter now. EXTREMITIES: Has a chronic lymphedema, both lower extremities. The patient is able to move upper and lower extremities. NEUROLOGIC: No focal deficit noted. Moving all extremities. Answering questions appropriately. LABORATORY DATA: Shows a white count of 10, hemoglobin 11, platelets 184. Electrolytes are sodium 152, potassium 5.2, chloride 101, bicarbonate 36, anion gap 5, BUN 22, creatinine 0.8, glucose 117. LFTs normal. Troponin 0.043. BNP 581. Procalcitonin 0.1. Lactic acid 0.9. Urine negative for infection. Toxicology screen positive for opiates. The patient takes hydrocodone. A pH of 7.30, pCO2 of 75, bicarb 36 on 40% O2, 94 saturation. DIAGNOSTIC DATA: Had a CT head, was negative. CT chest negative for any lung infiltrate. CT of the abdomen shows gallstones. Chest x-ray, COPD. EKG negative for ischemia, normal sinus rhythm. FINAL IMPRESSION: 1. Hypercapnic respiratory failure with CO2 retention. 2. Obstructive sleep apnea, uses BiPAP. 3. Chronic obstructive pulmonary disease, cor pulmonale. 4. Hypothyroidism. 5. Anxiety. 6. Depression. 7. Gallstones. 8. Gastroparesis. PLAN: At this time, the patient was placed on BiPAP, oxygen, DuoNeb 4 times daily, IV Solu-Medrol, DVT prophylaxis with Lovenox. Pulmonary consult. The patient was on erythromycin, recently started, probably will change it to Reglan and see if that may help. The patient's condition is slowly improving. Hopefully should be able to go home in a couple of days. EDDA/STEPHANIE DR: Oralia TID: [id number] MTDD
--- NOTE | 2021-02-04 10:12 | PDOC ---
PULMONARY PROGRESS NOTES DATE: 02/04/21 TIME: 10:12 Vitals Vital Signs Date Time Temp Pulse Resp B/P (MAP) Pulse Ox O2 Delivery O2 Flow Rate FiO2 02/04/21 07:19 94 BiPAP/CPAP 02/04/21 07:00 97.7 75 22 173/83 (113) 97.7 02/03/21 19:55 15.0 Labs Laboratory Tests Test 02/03/21 13:50 02/03/21 14:05 02/03/21 14:30 02/03/21 14:35 White Blood Count 10.1 x10^3/uL (4.0-11.0) Red Blood Count 4.19 x10^6/uL (3.50-5.40) Hemoglobin 11.7 g/dL (12.0-15.5) Hematocrit 37.1 % (36.0-47.0) Mean Corpuscular Volume 89 fL (79-100) Mean Corpuscular Hemoglobin 28 pg (25-35) Mean Corpuscular Hemoglobin Concent 32 g/dL (31-37) Red Cell Distribution Width 16.1 % (11.5-14.5) Platelet Count 184 x10^3/uL (140-400) Neutrophils (%) (Auto) 82 % (31-73) Lymphocytes (%) (Auto) 12 % (24-48) Monocytes (%) (Auto) 5 % (0-9) Eosinophils (%) (Auto) 1 % (0-3) Basophils (%) (Auto) 1 % (0-3) Neutrophils # (Auto) 8.2 x10^3/uL (1.8-7.7) Lymphocytes # (Auto) 1.2 x10^3/uL (1.0-4.8) Monocytes # (Auto) 0.5 x10^3/uL (0.0-1.1) Eosinophils # (Auto) 0.1 x10^3/uL (0.0-0.7) Basophils # (Auto) 0.0 x10^3/uL (0.0-0.2) Sodium Level 142 mmol/L (136-145) Potassium Level 5.2 mmol/L (3.5-5.1) Chloride Level 101 mmol/L (98-107) Carbon Dioxide Level 36 mmol/L (21-32) Anion Gap 5 (6-14) Blood Urea Nitrogen 22 mg/dL (7-20) Creatinine 0.8 mg/dL (0.6-1.0) Estimated GFR (Cockcroft-Gault) 70.1 Glucose Level 117 mg/dL (70-99) Lactic Acid Level 0.9 mmol/L (0.4-2.0) Calcium Level 8.0 mg/dL (8.5-10.1) Magnesium Level 1.6 mg/dL (1.8-2.4) Total Bilirubin 1.0 mg/dL (0.2-1.0) Direct Bilirubin 0.2 mg/dL (0.0-0.2) Aspartate Amino Transf (AST/SGOT) 25 U/L (15-37) Alanine Aminotransferase (ALT/SGPT) 16 U/L (14-59) Alkaline Phosphatase 104 U/L (46-116) Creatine Kinase 159 U/L (26-192) Troponin I Quantitative 0.043 ng/mL (0.000-0.055) [id number]-Type Natriuretic Peptide 581 pg/mL (0-124) Total Protein 7.8 g/dL (6.4-8.2) Albumin 3.9 g/dL (3.4-5.0) Procalcitonin < 0.10 ng/mL (0.00-0.10) O2 Saturation 94 % (92-99) Arterial Blood pH 7.30 (7.35-7.45) Arterial Blood pCO2 at Patient Temp 75 mmHg (35-46) Arterial Blood pO2 at Patient Temp 79 mmHg (65-108) Arterial Blood HCO3 36 mmol/L (21-28) Arterial Blood Base Excess 7 mmol/L (-3-3) Oxyhemoglobin 92.8 % Methemoglobin 0.3 % (0.0-1.9) Carbon Monoxide, Quantitative 1.3 % (0.0-1.9) FiO2 40 Urine Opiates Screen Pos (NEG) Urine Methadone Screen Neg (NEG) Urine Barbiturates Neg (NEG) Urine Phencyclidine Screen Neg (NEG) Urine Amphetamine/Methamphetamine Neg (NEG) Urine Benzodiazepines Screen Neg (NEG) Urine Cocaine Screen Neg (NEG) Urine Cannabinoids Screen Neg (NEG) Urine Ethyl Alcohol Neg (NEG) Urine Collection Type Unknown Urine Color Yellow Urine Clarity Clear Urine pH 5.0 (<5.0-8.0) Urine Specific [place] 1.025 (1.000-1.030) Urine Protein >=300 mg/dL (NEG-TRACE) Urine Glucose (UA) Negative mg/dL (NEG) Urine Ketones (Stick) Negative mg/dL (NEG) Urine Blood Negative (NEG) Urine Nitrite Negative (NEG) Urine Bilirubin Negative (NEG) Urine Urobilinogen Dipstick 1.0 mg/dL (0.2 mg/dL) Urine Leukocyte Esterase Negative (NEG) Urine RBC 0 /HPF (0-2) Urine WBC 0 /HPF (0-4) Urine Squamous Epithelial Cells Few /LPF Urine Bacteria 0 /HPF (0-FEW) Urine Hyaline Casts Few /HPF Urine Mucus Mod /LPF Test 02/04/21 08:00 O2 Saturation 96 % (92-99) Arterial Blood pH 7.34 (7.35-7.45) Arterial Blood pCO2 at Patient Temp 70 mmHg (35-46) Arterial Blood pO2 at Patient Temp 87 mmHg (65-108) Arterial Blood HCO3 37 mmol/L (21-28) Arterial Blood Base Excess 9 mmol/L (-3-3) FiO2 40/bipap Laboratory Tests Test 02/03/21 13:50 02/03/21 14:05 02/03/21 14:30 02/03/21 14:35 White Blood Count 10.1 x10^3/uL (4.0-11.0) Red Blood Count 4.19 x10^6/uL (3.50-5.40) Hemoglobin 11.7 g/dL (12.0-15.5) Hematocrit 37.1 % (36.0-47.0) Mean Corpuscular Volume 89 fL (79-100) Mean Corpuscular Hemoglobin 28 pg (25-35) Mean Corpuscular Hemoglobin Concent 32 g/dL (31-37) Red Cell Distribution Width 16.1 % (11.5-14.5) Platelet Count 184 x10^3/uL (140-400) Neutrophils (%) (Auto) 82 % (31-73) Lymphocytes (%) (Auto) 12 % (24-48) Monocytes (%) (Auto) 5 % (0-9) Eosinophils (%) (Auto) 1 % (0-3) Basophils (%) (Auto) 1 % (0-3) Neutrophils # (Auto) 8.2 x10^3/uL (1.8-7.7) Lymphocytes # (Auto) 1.2 x10^3/uL (1.0-4.8) Monocytes # (Auto) 0.5 x10^3/uL (0.0-1.1) Eosinophils # (Auto) 0.1 x10^3/uL (0.0-0.7) Basophils # (Auto) 0.0 x10^3/uL (0.0-0.2) Sodium Level 142 mmol/L (136-145) Potassium Level 5.2 mmol/L (3.5-5.1) Chloride Level 101 mmol/L (98-107) Carbon Dioxide Level 36 mmol/L (21-32) Anion Gap 5 (6-14) Blood Urea Nitrogen 22 mg/dL (7-20) Creatinine 0.8 mg/dL (0.6-1.0) Estimated GFR (Cockcroft-Gault) 70.1 Glucose Level 117 mg/dL (70-99) Lactic Acid Level 0.9 mmol/L (0.4-2.0) Calcium Level 8.0 mg/dL (8.5-10.1) Magnesium Level 1.6 mg/dL (1.8-2.4) Total Bilirubin 1.0 mg/dL (0.2-1.0) Direct Bilirubin 0.2 mg/dL (0.0-0.2) Aspartate Amino Transf (AST/SGOT) 25 U/L (15-37) Alanine Aminotransferase (ALT/SGPT) 16 U/L (14-59) Alkaline Phosphatase 104 U/L (46-116) Creatine Kinase 159 U/L (26-192) Troponin I Quantitative 0.043 ng/mL (0.000-0.055) XJ-Yqj-W-Type Natriuretic Peptide 581 pg/mL (0-124) Total Protein 7.8 g/dL (6.4-8.2) Albumin 3.9 g/dL (3.4-5.0) Procalcitonin < 0.10 ng/mL (0.00-0.10) O2 Saturation 94 % (92-99) Arterial Blood pH 7.30 (7.35-7.45) Arterial Blood pCO2 at Patient Temp 75 mmHg (35-46) Arterial Blood pO2 at Patient Temp 79 mmHg (65-108) Arterial Blood HCO3 36 mmol/L (21-28) Arterial Blood Base Excess 7 mmol/L (-3-3) Oxyhemoglobin 92.8 % Methemoglobin 0.3 % (0.0-1.9) Carbon Monoxide, Quantitative 1.3 % (0.0-1.9) FiO2 40 Urine Opiates Screen Pos (NEG) Urine Methadone Screen Neg (NEG) Urine Barbiturates Neg (NEG) Urine Phencyclidine Screen Neg (NEG) Urine Amphetamine/Methamphetamine Neg (NEG) Urine Benzodiazepines Screen Neg (NEG) Urine Cocaine Screen Neg (NEG) Urine Cannabinoids Screen Neg (NEG) Urine Ethyl Alcohol Neg (NEG) Urine Collection Type Unknown Urine Color Yellow Urine Clarity Clear Urine pH 5.0 (<5.0-8.0) Urine Specific [place] 1.025 (1.000-1.030) Urine Protein >=300 mg/dL (NEG-TRACE) Urine Glucose (UA) Negative mg/dL (NEG) Urine Ketones (Stick) Negative mg/dL (NEG) Urine Blood Negative (NEG) Urine Nitrite Negative (NEG) Urine Bilirubin Negative (NEG) Urine Urobilinogen Dipstick 1.0 mg/dL (0.2 mg/dL) Urine Leukocyte Esterase Negative (NEG) Urine RBC 0 /HPF (0-2) Urine WBC 0 /HPF (0-4) Urine Squamous Epithelial Cells Few /LPF Urine Bacteria 0 /HPF (0-FEW) Urine Hyaline Casts Few /HPF Urine Mucus Mod /LPF Test 02/04/21 08:00 O2 Saturation 96 % (92-99) Arterial Blood pH 7.34 (7.35-7.45) Arterial Blood pCO2 at Patient Temp 70 mmHg (35-46) Arterial Blood pO2 at Patient Temp 87 mmHg (65-108) Arterial Blood HCO3 37 mmol/L (21-28) Arterial Blood Base Excess 9 mmol/L (-3-3) FiO2 40/bipap Medications Active Scripts Medications Dose Route/Sig Max Daily Dose Days Date Category Dose Instructions Famotidine 20 Mg Tablet 20 Mg PO BID 02/04/21 Reported Sucralfate 1 Gm Tablet 1 Tab PO BID 02/04/21 Reported Hydrocodone-Apap 10-325 (Hydrocodone Bit/Acetaminophen) 1 Tab Tablet 1 Tab PO HS PRN 02/04/21 Reported Bumetanide 1 Mg Tablet 1 Tab PO DAILY 11/14/19 Reported Amitiza (Lubiprostone) 24 Mcg Capsule 1 Cap PO DAILY 30 11/14/19 Reported Symbicort 160-4.5 Mcg Inhaler (Budesonide/Formoterol Fumarate) 10.2 Gm Hfa.aer.ad 2 Puff IH BID 11/14/19 Reported Nystatin 15 Gm Cream..g. 1 Rodolfo TP BID 11/14/19 Reported Triamcinolone Acetonide 0.1% Oint (Triamcinolone Acetonide) 15 Gm Oint...g. 1 Rodolfo TP BID 11/14/19 Reported MIX WITH EUCERIN DIRECTED BY PHYSICIAN Proair Hfa (Albuterol Sulfate) 8.5 Gm Hfa.aer.ad 2 Puff IH PRN Q4-6HRS PRN 21 11/14/19 Reported Gabapentin (Gabapentin) 300 Mg Capsule 300 Mg PO TID 04/30/18 Reported Crestor (Rosuvastatin Calcium) 10 Mg Tablet 10 Mg PO HS 02/19/18 Reported Escitalopram Oxalate 10 Mg Tablet 10 Mg PO DAILY 02/19/18 Reported Levothyroxine Sodium 175 Mcg Tablet 175 Mcg PO DAILYAC 02/19/18 Reported Ondansetron Hcl 4 Mg Tablet 4 Mg PO BID PRN 02/19/18 Reported Potassium Chloride (Potassium Chloride) 20 Meq Tablet.er 20 Meq PO BIDWMEALS 02/19/18 Reported Impression . Acute on chronic hypercapnic respiratory failure acute on chronic cor pulmonale Continue to diurese Continue FredisAP LARRY ZEPEDA MD Feb 04, 2021 10:12
[2021-02-04 11:00] VITALS: BP 168/71
[2021-02-04] MEDS: IPRATRPIUM/ALBUTEROL 0.5/2.5MG 3 ML NEBU. NEB SCH ×3 (12:00→20:27)
--- NOTE | 2021-02-04 12:50 | NUR ---
SS following for discharge planning. SS reviewed pt chart and discussed with pt RN. Pt is from home alone and is currently requiring oxygen at three liters nasal canula. Pt has home oxygen. Pt has home health aide at home. Pulmonology following. ST ordered. SS will continue to follow for discharge planning.
[2021-02-04 15:00] VITALS: BP 146/77
[2021-02-04] MEDS ORDERED: AZITHROMYCIN 250 MG TABLET. PO ONE (15:45)
--- NOTE | 2021-02-04 17:02 | NUR ---
Breathing treatments held pending results of Covid swab. MIKE Schultz notified.
[2021-02-04 19:05] VITALS: BP 150/68
[2021-02-04] MEDS: ATORVASTATIN CALCIUM 40 MG TABLET. PO SCH (20:32)
[2021-02-04] MEDS: HYDROcodone/APAP 10/325 1 TAB TABLET PO PRN (20:33)
[2021-02-04] MEDS ORDERED: NON FORMULARY ITEM (Rosuvastatin Calcium (Crestor) 10 MG) PO SCH (21:00)
[2021-02-04 23:05] VITALS: BP 124/44
[2021-02-05 03:05] VITALS: BP 156/64
[2021-02-05] MEDS: methylPREDNISolone SOD SUCC PF 40 MG/ML VIAL. IV SCH ×3 (05:41→22:00)
[2021-02-05 06:00] LABS: VANC TR 10.2 mcg/mL (10.0-20.0)
[2021-02-05 06:02] LABS: CALCIUM 8.3 mg/dL (8.5-10.1); CREATININE 0.9 mg/dL (0.6-1.0); GFR 61.2; POTASSIUM 4.7 mmol/L (3.5-5.1)
[2021-02-05 07:00] VITALS: BP 210/86
[2021-02-05] MEDS ORDERED: hydrALAZINE 20 MG/ML VIAL. IVP PRN (07:30)
--- NOTE | 2021-02-05 07:32 | CONS ---
DATE OF CONSULTATION: 02/04/2021 ATTENDING PHYSICIAN: Landry Mercado MD HISTORY OF PRESENT ILLNESS: The patient is seen in pulmonary consultation at the request of Dr. Mercado for acute on chronic hypoxemic, hypercapnic respiratory failure. Initial arterial blood gas pH of 7.30, PaCO2 of 75, pO2 of 79, bicarbonate of 36. The patient is a 75-year-old that resides at home with some home health. She is normally on oxygen at 2 liters at nighttime. She utilizes CPAP. She presented to the emergency room with confusion. She was sleeping all morning. The patient presented with the above complaints, was admitted. I was asked to see her in consultation. Repeat arterial blood gas this morning revealed a pH of 7.34, PaCO2 of 70, pO2 of 87. The chest x-ray and CT chest was reviewed. CT chest revealed no significant infiltrates or consolidation. The patient denies any current fever, chills, night sweats. PAST MEDICAL HISTORY: Remarkable for obstructive sleep apnea, COPD, chronic respiratory failure, chronic hypercapnia, chronic lower extremity lymphedema, cor pulmonale, arthritis, hypothyroidism, morbid obesity, depression, chronic pain. PAST SURGICAL HISTORY: No recent major surgeries. ALLERGIES: TO HYDROCODONE. MEDICATIONS: Medication list was reviewed. The patient states over the last several days, she has not taken her diuretic. SOCIAL HISTORY: She quit tobacco many years ago. Lives with her daughter. She also has ____]. She has a motorized scooter. She has a hospital bed. She is not walking. REVIEW OF SYSTEMS: As indicated above, otherwise 10 systems were reviewed and negative. PHYSICAL EXAMINATION: VITAL SIGNS: Stable. O2 saturation was greater than 92%, currently on 4 liters. I dropped her O2 delivery to 2 liters. HEENT: Eyes: The sclerae were nonicteric. NECK: Jugular venous distention could not be assessed secondary to body habitus. CHEST: Full expansion. LUNGS: Poor airflow. ABDOMEN: Obese. EXTREMITIES: Marked lymphadenopathy. LABORATORY DATA: Reviewed. White count was normal, hemoglobin and hematocrit were noted. Electrolytes were noted. BNP was elevated. BUN was 22, creatinine 0.8. Serology for SARS-CoV-2 was negative. DIAGNOSTIC DATA: Chest x-ray and CT chest reviewed as indicated above. IMPRESSION: 1. Acute on chronic hypoxemic, hypercapnic respiratory failure. 2. Acute exacerbation of chronic obstructive pulmonary disease. 3. Obstructive sleep apnea. 4. Acute on chronic cor pulmonale. 5. Hypothyroidism. 6. Morbid obesity. 7. Depression. PLAN: 1. Continue BiPAP during the day and at bedtime. 2. Decrease FIO2 to 2 liters, do not increase above 2. 3. Continue to diurese. 4. No need for antibiotics. 5. Continue home meds. I do appreciate the privilege in sharing in the patient's care. MACRINA/STEPHANIE/ANETTE DR: Rupa TID: [id number]
[2021-02-05] MEDS: LEVOTHYROXINE 175 MCG TABLET PO SCH (07:58)
[2021-02-05] MEDS: POTASSIUM CHLORIDE 20 MEQ TABLET.ER. PO SCH ×2 (07:58→17:46)
[2021-02-05] MEDS: SUCRALFATE 1 GM TABLET. PO SCH ×2 (07:58→22:42)
[2021-02-05] MEDS: CITALOPRAM 20 MG TABLET. PO SCH (07:58)
[2021-02-05] MEDS: BUMETANIDE 1 MG TABLET. PO SCH (07:58)
[2021-02-05] MEDS: FAMOTIDINE 20 MG TABLET. PO SCH ×2 (07:58→22:41)
[2021-02-05] MEDS: LUBIPROSTONE 24 MCG CAPSULE PO SCH (07:59)
[2021-02-05] MEDS: AZITHROMYCIN 250 MG TABLET. PO SCH (07:59)
[2021-02-05] MEDS: GABAPENTIN 300 MG CAPSULE. PO SCH ×3 (07:59→22:42)
[2021-02-05] MEDS: IPRATRPIUM/ALBUTEROL 0.5/2.5MG 3 ML NEBU. NEB SCH ×4 (08:00→20:11)
[2021-02-05] MEDS: TRIAMCINOLONE ACETONIDE 0.1% TOPICAL OINTMENT 15GM TUBE. TP SCH ×2 (08:01→22:54)
[2021-02-05] MEDS: NYSTATIN 100,000 UNIT/GM TOPICAL CREAM 15GM TUBE. TP SCH ×2 (08:02→22:54)
[2021-02-05] MEDS: BUDESONIDE 0.5 MG/2 ML NEBU. NEB SCH ×2 (08:21→20:11)
--- NOTE | 2021-02-05 09:12 | PDOC ---
IM PROGRESS NOTES- Subjective Subjective No complaints of pain or dyspnea. Objective Vitals/I&O Vital Signs Date Time Temp Pulse Resp B/P (MAP) Pulse Ox O2 Delivery O2 Flow Rate FiO2 02/05/21 08:26 96 Nasal Cannula 5.0 02/05/21 07:58 60 200/84 02/05/21 07:00 97.8 16 97.8 I & O 02/04/21 02/04/21 02/05/21 15:00 23:00 07:00 Intake Total 240 ml 240 ml 100 ml Output Total 2000 ml 450 ml Balance 240 ml -1760 ml -350 ml Physical Exam Physical Exam General appearance - alert and in mild distress Mental Status - alert, oriented to person, place, and time, affect appropriate to mood Head - normal Chest - decreased breath sounds at bases, on oxygen by nasal cannula. Heart - S1 and S2 normal Abdomen - soft, nontender Neurological - alert and oriented Extremities -chronic edema of lower extremities Labs Laboratory Tests Test 02/05/21 05:00 Sodium Level 143 mmol/L (136-145) Potassium Level 4.7 mmol/L (3.5-5.1) Chloride Level 103 mmol/L (98-107) Carbon Dioxide Level 37 mmol/L (21-32) H Anion Gap 3 (6-14) L Blood Urea Nitrogen 26 mg/dL (7-20) H Creatinine 0.9 mg/dL (0.6-1.0) Estimated GFR (Cockcroft-Gault) 61.2 Glucose Level 140 mg/dL (70-99) H Calcium Level 8.3 mg/dL (8.5-10.1) L Vancomycin Level Trough 10.2 mcg/mL (10.0-20.0) Vancomycin Last Dose Date 02/04/21 Vancomycin Last Dose Time 1800 Laboratory Tests 02/05/21 05:00 Meds Current Medications Medications (Trade) Dose Ordered Sig/Ilan Route PRN Reason Start Time Stop Time Status Last Admin Dose Admin Levothyroxine Sodium (Synthroid) 175 mcg DAILYAC PO 02/05/21 07:30 02/05/21 07:58 Albuterol/ Ipratropium (Duoneb) 3 ml RTQID NEB 02/04/21 12:00 02/05/21 08:00 Atorvastatin Calcium (Lipitor) 40 mg QHS PO 02/04/21 21:00 02/04/21 20:32 Enoxaparin Sodium (Lovenox 40mg Syringe) 40 mg Q24H SQ 02/04/21 10:00 02/05/21 07:43 DC 02/04/21 10:02 Sodium Chloride 1,000 ml @ 75 mls/hr [id number] IV 02/04/21 10:00 02/04/21 10:00 Budesonide (Pulmicort) 0.5 mg RTBID NEB 02/04/21 10:00 02/05/21 08:21 Azithromycin (Zithromax) 500 mg 1X ONCE PO 02/04/21 15:45 02/04/21 15:54 DC 02/04/21 17:52 Azithromycin (Zithromax) 250 mg DAILY PO 02/05/21 09:00 02/05/21 07:59 Hydralazine HCl (Apresoline Inj) 10 mg PRN Q4HRS PRN IVP ELEVATED BP, SEE COMMENTS 02/05/21 07:30 02/05/21 07:58 Enoxaparin Sodium (Lovenox 60mg Syringe) 60 mg Q12H SQ 02/05/21 09:00 02/05/21 08:01 Assessment Assessment 1. Hypercapnic respiratory failure with CO2 retention. 2. Obstructive sleep apnea, uses BiPAP. 3. Chronic obstructive pulmonary disease, cor pulmonale. 4. Hypothyroidism. 5. Anxiety. 6. Depression. 7. Gallstones. 8. Gastroparesis. PLAN: Acute respiratory failure- Continue oxygen by nasal cannula,, DuoNeb 4 times daily, IV Solu-Medrol, DVT prophylaxis with Lovenox. Pulmonary consult. Hypomagnesemia-replace magnesium. Accelerated hypertension-IV hydralazine. Patient is not sure if she is taking any blood pressure medications at home. Plan Plan For more details regarding further plans, please refer to the orders. Justifications for Admission Other Justification JOSÉ MIGUEL GONZALEZ MD February 05, 2021 09:12
[2021-02-05] MEDS ORDERED: MAGNESIUM SULFATE 2GM 50 ML IV ONE (10:00)
[2021-02-05 11:00] VITALS: BP 138/63
--- NOTE | 2021-02-05 11:10 | PDOC ---
PULMONARY PROGRESS NOTES DATE: 02/05/21 TIME: 11:08 Subjective pt states she is feeling so/so remains on NC oxygen 5 liters Vitals Vital Signs Date Time Temp Pulse Resp B/P (MAP) Pulse Ox O2 Delivery O2 Flow Rate FiO2 02/05/21 08:26 96 Nasal Cannula 5.0 02/05/21 07:58 60 200/84 02/05/21 07:00 97.8 16 97.8 ROS: No Nausea, No Chest Pain, No Abdominal Pain, No Increase Cough General: Alert Lungs: Clear Cardiovascular: S1, S2 Abdomen: Soft, Non-tender Neuro Exam: Alert, Oriented Extremities: No Edema Skin: Warm, Dry Labs Laboratory Tests Test 02/03/21 13:50 02/03/21 14:05 02/03/21 14:30 02/03/21 14:35 White Blood Count 10.1 x10^3/uL (4.0-11.0) Red Blood Count 4.19 x10^6/uL (3.50-5.40) Hemoglobin 11.7 g/dL (12.0-15.5) Hematocrit 37.1 % (36.0-47.0) Mean Corpuscular Volume 89 fL (79-100) Mean Corpuscular Hemoglobin 28 pg (25-35) Mean Corpuscular Hemoglobin Concent 32 g/dL (31-37) Red Cell Distribution Width 16.1 % (11.5-14.5) Platelet Count 184 x10^3/uL (140-400) Neutrophils (%) (Auto) 82 % (31-73) Lymphocytes (%) (Auto) 12 % (24-48) Monocytes (%) (Auto) 5 % (0-9) Eosinophils (%) (Auto) 1 % (0-3) Basophils (%) (Auto) 1 % (0-3) Neutrophils # (Auto) 8.2 x10^3/uL (1.8-7.7) Lymphocytes # (Auto) 1.2 x10^3/uL (1.0-4.8) Monocytes # (Auto) 0.5 x10^3/uL (0.0-1.1) Eosinophils # (Auto) 0.1 x10^3/uL (0.0-0.7) Basophils # (Auto) 0.0 x10^3/uL (0.0-0.2) Sodium Level 142 mmol/L (136-145) Potassium Level 5.2 mmol/L (3.5-5.1) Chloride Level 101 mmol/L (98-107) Carbon Dioxide Level 36 mmol/L (21-32) Anion Gap 5 (6-14) Blood Urea Nitrogen 22 mg/dL (7-20) Creatinine 0.8 mg/dL (0.6-1.0) Estimated GFR (Cockcroft-Gault) 70.1 Glucose Level 117 mg/dL (70-99) Lactic Acid Level 0.9 mmol/L (0.4-2.0) Calcium Level 8.0 mg/dL (8.5-10.1) Magnesium Level 1.6 mg/dL (1.8-2.4) Total Bilirubin 1.0 mg/dL (0.2-1.0) Direct Bilirubin 0.2 mg/dL (0.0-0.2) Aspartate Amino Transf (AST/SGOT) 25 U/L (15-37) Alanine Aminotransferase (ALT/SGPT) 16 U/L (14-59) Alkaline Phosphatase 104 U/L (46-116) Creatine Kinase 159 U/L (26-192) Troponin I Quantitative 0.043 ng/mL (0.000-0.055) OM-Aoh-B-Type Natriuretic Peptide 581 pg/mL (0-124) Total Protein 7.8 g/dL (6.4-8.2) Albumin 3.9 g/dL (3.4-5.0) Procalcitonin < 0.10 ng/mL (0.00-0.10) O2 Saturation 94 % (92-99) Arterial Blood pH 7.30 (7.35-7.45) Arterial Blood pCO2 at Patient Temp 75 mmHg (35-46) Arterial Blood pO2 at Patient Temp 79 mmHg (65-108) Arterial Blood HCO3 36 mmol/L (21-28) Arterial Blood Base Excess 7 mmol/L (-3-3) Oxyhemoglobin 92.8 % Methemoglobin 0.3 % (0.0-1.9) Carbon Monoxide, Quantitative 1.3 % (0.0-1.9) FiO2 40 Urine Opiates Screen Pos (NEG) Urine Methadone Screen Neg (NEG) Urine Barbiturates Neg (NEG) Urine Phencyclidine Screen Neg (NEG) Urine Amphetamine/Methamphetamine Neg (NEG) Urine Benzodiazepines Screen Neg (NEG) Urine Cocaine Screen Neg (NEG) Urine Cannabinoids Screen Neg (NEG) Urine Ethyl Alcohol Neg (NEG) Urine Collection Type Unknown Urine Color Yellow Urine Clarity Clear Urine pH 5.0 (<5.0-8.0) Urine Specific [place] 1.025 (1.000-1.030) Urine Protein >=300 mg/dL (NEG-TRACE) Urine Glucose (UA) Negative mg/dL (NEG) Urine Ketones (Stick) Negative mg/dL (NEG) Urine Blood Negative (NEG) Urine Nitrite Negative (NEG) Urine Bilirubin Negative (NEG) Urine Urobilinogen Dipstick 1.0 mg/dL (0.2 mg/dL) Urine Leukocyte Esterase Negative (NEG) Urine RBC 0 /HPF (0-2) Urine WBC 0 /HPF (0-4) Urine Squamous Epithelial Cells Few /LPF Urine Bacteria 0 /HPF (0-FEW) Urine Hyaline Casts Few /HPF Urine Mucus Mod /LPF Test 02/03/21 15:00 02/04/21 08:00 02/05/21 05:00 SARS-CoV-2 RNA (BRANDY) Negative (Negative) O2 Saturation 96 % (92-99) Arterial Blood pH 7.34 (7.35-7.45) Arterial Blood pCO2 at Patient Temp 70 mmHg (35-46) Arterial Blood pO2 at Patient Temp 87 mmHg (65-108) Arterial Blood HCO3 37 mmol/L (21-28) Arterial Blood Base Excess 9 mmol/L (-3-3) FiO2 40/bipap Sodium Level 143 mmol/L (136-145) Potassium Level 4.7 mmol/L (3.5-5.1) Chloride Level 103 mmol/L (98-107) Carbon Dioxide Level 37 mmol/L (21-32) Anion Gap 3 (6-14) Blood Urea Nitrogen 26 mg/dL (7-20) Creatinine 0.9 mg/dL (0.6-1.0) Estimated GFR (Cockcroft-Gault) 61.2 Glucose Level 140 mg/dL (70-99) Calcium Level 8.3 mg/dL (8.5-10.1) Vancomycin Level Trough 10.2 mcg/mL (10.0-20.0) Vancomycin Last Dose Date 02/04/21 Vancomycin Last Dose Time 1800 Laboratory Tests Test 02/05/21 05:00 Sodium Level 143 mmol/L (136-145) Potassium Level 4.7 mmol/L (3.5-5.1) Chloride Level 103 mmol/L (98-107) Carbon Dioxide Level 37 mmol/L (21-32) Anion Gap 3 (6-14) Blood Urea Nitrogen 26 mg/dL (7-20) Creatinine 0.9 mg/dL (0.6-1.0) Estimated GFR (Cockcroft-Gault) 61.2 Glucose Level 140 mg/dL (70-99) Calcium Level 8.3 mg/dL (8.5-10.1) Vancomycin Level Trough 10.2 mcg/mL (10.0-20.0) Vancomycin Last Dose Date 02/04/21 Vancomycin Last Dose Time 1800 Medications Active Scripts Medications Dose Route/Sig Max Daily Dose Days Date Category Dose Instructions Famotidine 20 Mg Tablet 20 Mg PO BID 02/04/21 Reported Sucralfate 1 Gm Tablet 1 Tab PO BID 02/04/21 Reported Hydrocodone-Apap 10-325 (Hydrocodone Bit/Acetaminophen) 1 Tab Tablet 1 Tab PO HS PRN 02/04/21 Reported Bumetanide 1 Mg Tablet 1 Tab PO DAILY 11/14/19 Reported Amitiza (Lubiprostone) 24 Mcg Capsule 1 Cap PO DAILY 30 11/14/19 Reported Symbicort 160-4.5 Mcg Inhaler (Budesonide/Formoterol Fumarate) 10.2 Gm Hfa.aer.ad 2 Puff IH BID 11/14/19 Reported Nystatin 15 Gm Cream..g. 1 Rodolfo TP BID 11/14/19 Reported Triamcinolone Acetonide 0.1% Oint (Triamcinolone Acetonide) 15 Gm Oint...g. 1 Rodolfo TP BID 11/14/19 Reported MIX WITH EUCERIN DIRECTED BY PHYSICIAN Proair Hfa (Albuterol Sulfate) 8.5 Gm Hfa.aer.ad 2 Puff IH PRN Q4-6HRS PRN 21 11/14/19 Reported Gabapentin (Gabapentin) 300 Mg Capsule 300 Mg PO TID 04/30/18 Reported Crestor (Rosuvastatin Calcium) 10 Mg Tablet 10 Mg PO HS 02/19/18 Reported Escitalopram Oxalate 10 Mg Tablet 10 Mg PO DAILY 02/19/18 Reported Levothyroxine Sodium 175 Mcg Tablet 175 Mcg PO DAILYAC 02/19/18 Reported Ondansetron Hcl 4 Mg Tablet 4 Mg PO BID PRN 02/19/18 Reported Potassium Chloride (Potassium Chloride) 20 Meq Tablet.er 20 Meq PO BIDWMEALS 02/19/18 Reported Impression . IMPRESSION: 1. Acute on chronic hypoxemic, hypercapnic respiratory failure. 2. Acute exacerbation of chronic obstructive pulmonary disease. 3. Obstructive sleep apnea. 4. Acute on chronic cor pulmonale. 5. Hypothyroidism. 6. Morbid obesity. 7. Depression. Plan . Plan Continue supplemental oxygen, do not increase above 2 liter NC Continue BIPAP Continue NEBS Continue steroids Continue to diurese PT/OT DVT/GI PPX. D/W LARRY EL MD February 05, 2021 11:10
--- NOTE | 2021-02-05 11:18 | NUR ---
Bedside Swallow Evaluation completed. Please refer to full report in intervention section for additional information. Impressions: Functional swallow for modified diet. Mastication inefficiency r/t mostly edentulous status. Pt was w/o s/s aspiration for thin and thick liquids, puree and soft solids. Recommendations: Initiate dysphagia II diet w/ thin liquids and general swallow precautions. Pt agreeable to modified diet but reports she avoids corn and does not like eggs. ST f/u for dysphagia and diet assessment.
[2021-02-05] MEDS: IV NORMAL SALINE 1000ML BAG 1,000 ML IV SCH (14:44)
[2021-02-05 15:31] VITALS: BP 146/56
[2021-02-05 19:50] VITALS: BP 160/68
[2021-02-05] MEDS: ATORVASTATIN CALCIUM 40 MG TABLET. PO SCH (22:41)
[2021-02-05] MEDS: HYDROcodone/APAP 10/325 1 TAB TABLET PO PRN (22:43)
[2021-02-05 23:10] VITALS: BP 161/70
[2021-02-06 03:35] VITALS: BP 165/74
[2021-02-06 04:34] LABS: BASO % 0 % (0-3); EOS % 0 % (0-3); HEMATOCRIT 35.3 % (36.0-47.0); HEMOGLOBIN 11.3 g/dL (12.0-15.5); LYMPH # 0.8 x10^3/uL (1.0-4.8); LYMPH % 10 % (24-48); MEAN CORPUSCULAR HEMOGLOBIN 28 pg (25-35); MEAN CORPUSCULAR HGB CONC 32 g/dL (31-37); MEAN CORPUSCULAR VOLUME 88 fL (79-100); MONO # 0.1 x10^3/uL (0.0-1.1); MONO % 2 % (0-9); NEUT % 88 % (31-73); PLATELET COUNT 192 x10^3/uL (140-400); RED BLOOD COUNT 4.03 x10^6/uL (3.50-5.40); RED CELL DISTRIBUTION WIDTH 15.7 % (11.5-14.5); WHITE BLOOD COUNT 7.9 x10^3/uL (4.0-11.0)
[2021-02-06 05:02] LABS: ALBUMIN 3.4 g/dL (3.4-5.0); CALCIUM 8.3 mg/dL (8.5-10.1); CREATININE 0.9 mg/dL (0.6-1.0); GFR 61.2; TOTAL BILIRUBIN 0.8 mg/dL (0.2-1.0); TOTAL PROTEIN 6.7 g/dL (6.4-8.2)
[2021-02-06 05:20] LABS: % BANDS 1 % (0-9); % LYMPHS 7 % (24-48); % MONOS 2 % (0-10); % SEGS 90 % (35-66); ANISOCYTOSIS SLIGHT; HYPOCHROMIA SLIGHT; PLT ESTIMATE ADEQUATE (ADEQUATE); POLYCHROMASIA SLIGHT
[2021-02-06] MEDS: LEVOTHYROXINE 175 MCG TABLET PO SCH ×2 (06:38→08:30)
[2021-02-06] MEDS: methylPREDNISolone SOD SUCC PF 40 MG/ML VIAL. IV SCH (06:38)
[2021-02-06 07:00] VITALS: BP 151/123
[2021-02-06] MEDS: IPRATRPIUM/ALBUTEROL 0.5/2.5MG 3 ML NEBU. NEB SCH ×4 (08:15→21:06)
[2021-02-06] MEDS: BUDESONIDE 0.5 MG/2 ML NEBU. NEB SCH ×2 (08:16→21:07)
[2021-02-06] MEDS: IV NORMAL SALINE 1000ML BAG 1,000 ML IV SCH (08:29)
[2021-02-06] MEDS: CITALOPRAM 20 MG TABLET. PO SCH (08:30)
[2021-02-06] MEDS: LUBIPROSTONE 24 MCG CAPSULE PO SCH (08:30)
[2021-02-06] MEDS: SUCRALFATE 1 GM TABLET. PO SCH ×2 (08:30→20:19)
[2021-02-06] MEDS: AZITHROMYCIN 250 MG TABLET. PO SCH (08:30)
[2021-02-06] MEDS: POTASSIUM CHLORIDE 20 MEQ TABLET.ER. PO SCH ×2 (08:30→16:52)
[2021-02-06] MEDS: GABAPENTIN 300 MG CAPSULE. PO SCH ×3 (08:30→20:20)
[2021-02-06] MEDS: FAMOTIDINE 20 MG TABLET. PO SCH ×2 (08:33→20:19)
[2021-02-06] MEDS: TRIAMCINOLONE ACETONIDE 0.1% TOPICAL OINTMENT 15GM TUBE. TP SCH ×2 (08:38→20:20)
[2021-02-06] MEDS: NYSTATIN 100,000 UNIT/GM TOPICAL CREAM 15GM TUBE. TP SCH ×2 (08:38→20:20)
[2021-02-06] MEDS ORDERED: FUROSEMIDE 20 MG/2 ML VIAL. IVP SCH (09:00)
--- NOTE | 2021-02-06 09:27 | PDOC ---
PULMONARY PROGRESS NOTES DATE: 02/06/21 TIME: 09:26 Subjective pt states she is feeling better today remains on NC oxygen 5 liters no increased SOA or cough or CP Vitals Vital Signs Date Time Temp Pulse Resp B/P (MAP) Pulse Ox O2 Delivery O2 Flow Rate FiO2 02/06/21 08:17 94 Nasal Cannula 5.0 02/06/21 07:00 97.5 62 16 151/123 (132) 97.5 ROS: No Nausea, No Chest Pain, No Abdominal Pain, No Increase Cough General: Alert Lungs: Clear Cardiovascular: S1, S2 Abdomen: Soft, Non-tender, Other (obese ) Neuro Exam: Alert, Oriented Extremities: No Edema Skin: Warm, Dry Labs Laboratory Tests Test 02/05/21 05:00 02/06/21 04:00 Sodium Level 143 mmol/L (136-145) 144 mmol/L (136-145) Potassium Level 4.7 mmol/L (3.5-5.1) 5.0 mmol/L (3.5-5.1) Chloride Level 103 mmol/L (98-107) 102 mmol/L (98-107) Carbon Dioxide Level 37 mmol/L (21-32) 38 mmol/L (21-32) Anion Gap 3 (6-14) 4 (6-14) Blood Urea Nitrogen 26 mg/dL (7-20) 30 mg/dL (7-20) Creatinine 0.9 mg/dL (0.6-1.0) 0.9 mg/dL (0.6-1.0) Estimated GFR (Cockcroft-Gault) 61.2 61.2 Glucose Level 140 mg/dL (70-99) 139 mg/dL (70-99) Calcium Level 8.3 mg/dL (8.5-10.1) 8.3 mg/dL (8.5-10.1) Vancomycin Level Trough 10.2 mcg/mL (10.0-20.0) Vancomycin Last Dose Date 02/04/21 Vancomycin Last Dose Time 1800 White Blood Count 7.9 x10^3/uL (4.0-11.0) Red Blood Count 4.03 x10^6/uL (3.50-5.40) Hemoglobin 11.3 g/dL (12.0-15.5) Hematocrit 35.3 % (36.0-47.0) Mean Corpuscular Volume 88 fL (79-100) Mean Corpuscular Hemoglobin 28 pg (25-35) Mean Corpuscular Hemoglobin Concent 32 g/dL (31-37) Red Cell Distribution Width 15.7 % (11.5-14.5) Platelet Count 192 x10^3/uL (140-400) Neutrophils (%) (Auto) 88 % (31-73) Lymphocytes (%) (Auto) 10 % (24-48) Monocytes (%) (Auto) 2 % (0-9) Eosinophils (%) (Auto) 0 % (0-3) Basophils (%) (Auto) 0 % (0-3) Neutrophils # (Auto) 7.0 x10^3/uL (1.8-7.7) Lymphocytes # (Auto) 0.8 x10^3/uL (1.0-4.8) Monocytes # (Auto) 0.1 x10^3/uL (0.0-1.1) Eosinophils # (Auto) 0.0 x10^3/uL (0.0-0.7) Basophils # (Auto) 0.0 x10^3/uL (0.0-0.2) Segmented Neutrophils % 90 % (35-66) Band Neutrophils % 1 % (0-9) Lymphocytes % 7 % (24-48) Monocytes % 2 % (0-10) Platelet Estimate Adequate (ADEQUATE) Polychromasia Slight Hypochromasia Slight Anisocytosis Slight BUN/Creatinine Ratio 33 (6-20) Magnesium Level 2.0 mg/dL (1.8-2.4) Total Bilirubin 0.8 mg/dL (0.2-1.0) Aspartate Amino Transf (AST/SGOT) 12 U/L (15-37) Alanine Aminotransferase (ALT/SGPT) 16 U/L (14-59) Alkaline Phosphatase 79 U/L (46-116) Total Protein 6.7 g/dL (6.4-8.2) Albumin 3.4 g/dL (3.4-5.0) Albumin/Globulin Ratio 1.0 (1.0-1.7) Laboratory Tests Test 02/06/21 04:00 White Blood Count 7.9 x10^3/uL (4.0-11.0) Red Blood Count 4.03 x10^6/uL (3.50-5.40) Hemoglobin 11.3 g/dL (12.0-15.5) Hematocrit 35.3 % (36.0-47.0) Mean Corpuscular Volume 88 fL (79-100) Mean Corpuscular Hemoglobin 28 pg (25-35) Mean Corpuscular Hemoglobin Concent 32 g/dL (31-37) Red Cell Distribution Width 15.7 % (11.5-14.5) Platelet Count 192 x10^3/uL (140-400) Neutrophils (%) (Auto) 88 % (31-73) Lymphocytes (%) (Auto) 10 % (24-48) Monocytes (%) (Auto) 2 % (0-9) Eosinophils (%) (Auto) 0 % (0-3) Basophils (%) (Auto) 0 % (0-3) Neutrophils # (Auto) 7.0 x10^3/uL (1.8-7.7) Lymphocytes # (Auto) 0.8 x10^3/uL (1.0-4.8) Monocytes # (Auto) 0.1 x10^3/uL (0.0-1.1) Eosinophils # (Auto) 0.0 x10^3/uL (0.0-0.7) Basophils # (Auto) 0.0 x10^3/uL (0.0-0.2) Segmented Neutrophils % 90 % (35-66) Band Neutrophils % 1 % (0-9) Lymphocytes % 7 % (24-48) Monocytes % 2 % (0-10) Platelet Estimate Adequate (ADEQUATE) Polychromasia Slight Hypochromasia Slight Anisocytosis Slight Sodium Level 144 mmol/L (136-145) Potassium Level 5.0 mmol/L (3.5-5.1) Chloride Level 102 mmol/L (98-107) Carbon Dioxide Level 38 mmol/L (21-32) Anion Gap 4 (6-14) Blood Urea Nitrogen 30 mg/dL (7-20) Creatinine 0.9 mg/dL (0.6-1.0) Estimated GFR (Cockcroft-Gault) 61.2 BUN/Creatinine Ratio 33 (6-20) Glucose Level 139 mg/dL (70-99) Calcium Level 8.3 mg/dL (8.5-10.1) Magnesium Level 2.0 mg/dL (1.8-2.4) Total Bilirubin 0.8 mg/dL (0.2-1.0) Aspartate Amino Transf (AST/SGOT) 12 U/L (15-37) Alanine Aminotransferase (ALT/SGPT) 16 U/L (14-59) Alkaline Phosphatase 79 U/L (46-116) Total Protein 6.7 g/dL (6.4-8.2) Albumin 3.4 g/dL (3.4-5.0) Albumin/Globulin Ratio 1.0 (1.0-1.7) Medications Active Scripts Medications Dose Route/Sig Max Daily Dose Days Date Category Dose Instructions Famotidine 20 Mg Tablet 20 Mg PO BID 02/04/21 Reported Sucralfate 1 Gm Tablet 1 Tab PO BID 02/04/21 Reported Hydrocodone-Apap 10-325 (Hydrocodone Bit/Acetaminophen) 1 Tab Tablet 1 Tab PO HS PRN 02/04/21 Reported Bumetanide 1 Mg Tablet 1 Tab PO DAILY 11/14/19 Reported Amitiza (Lubiprostone) 24 Mcg Capsule 1 Cap PO DAILY 30 11/14/19 Reported Symbicort 160-4.5 Mcg Inhaler (Budesonide/Formoterol Fumarate) 10.2 Gm Hfa.aer.ad 2 Puff IH BID 11/14/19 Reported Nystatin 15 Gm Cream..g. 1 Rodolfo TP BID 11/14/19 Reported Triamcinolone Acetonide 0.1% Oint (Triamcinolone Acetonide) 15 Gm Oint...g. 1 Rodolfo TP BID 11/14/19 Reported MIX WITH EUCERIN DIRECTED BY PHYSICIAN Proair Hfa (Albuterol Sulfate) 8.5 Gm Hfa.aer.ad 2 Puff IH PRN Q4-6HRS PRN 21 11/14/19 Reported Gabapentin (Gabapentin) 300 Mg Capsule 300 Mg PO TID 04/30/18 Reported Crestor (Rosuvastatin Calcium) 10 Mg Tablet 10 Mg PO HS 02/19/18 Reported Escitalopram Oxalate 10 Mg Tablet 10 Mg PO DAILY 02/19/18 Reported Levothyroxine Sodium 175 Mcg Tablet 175 Mcg PO DAILYAC 02/19/18 Reported Ondansetron Hcl 4 Mg Tablet 4 Mg PO BID PRN 02/19/18 Reported Potassium Chloride (Potassium Chloride) 20 Meq Tablet.er 20 Meq PO BIDWMEALS 02/19/18 Reported Impression . IMPRESSION: 1. Acute on chronic hypoxemic, hypercapnic respiratory failure. 2. Acute exacerbation of chronic obstructive pulmonary disease. 3. Obstructive sleep apnea. 4. Acute on chronic cor pulmonale. 5. Hypothyroidism. 6. Morbid obesity. 7. Depression. Plan . Plan Continue supplemental oxygen, do not increase above 2 liter NC Continue BIPAP/CPAP at Q HS and with day time napping Continue NEBS Continue steroids, with taper Continue to diurese follow in office PRN Educated on importance of weight loss PT/OT DVT/GI PPX. D/W RN ok to DC in am from our standpoint LARRY ZEPEDA MD February 06, 2021 09:26
[2021-02-06] MEDS ORDERED: predniSONE 10 MG TABLET PO ONE (09:30)
--- NOTE | 2021-02-06 09:40 | PDOC ---
PROGRESS NOTES Date of Service: DATE: 02/06/21 TIME: 09:37 Subjective Subjective Off BIPAP , on nasal canula 2L Objective Objective Vital Signs Date Time Temp Pulse Resp B/P (MAP) Pulse Ox O2 Delivery O2 Flow Rate FiO2 02/06/21 08:17 94 Nasal Cannula 5.0 02/06/21 07:00 97.5 62 16 151/123 (132) 97.5 Intake and Output 02/06/21 07:00 Intake Total 210 ml Output Total 2800 ml Balance -2590 ml Intake Oral 210 ml Output Urine Total 2800 ml Physical Exam Abdomen: Soft Heart: Regular rate, Normal S1 Extremities: No clubbing General: Alert, Cooperative Lungs: Clear to auscultation MUSCULOSKELETAL: No deformity Neuro: Normal speech Psych/Mental Status: Mental status NL Skin: No breakdown COMMENT french present Diagnosis Problem List Problems Medical Problems: (1) Acute hypercapnic respiratory failure Status: Acute (2) Hypertension Status: Acute (3) Person under investigation for COVID-19 Status: Acute Assessment Assessment 1. Hypercapnic respiratory failure with CO2 retention. 2. Obstructive sleep apnea, uses BiPAP. 3. Chronic obstructive pulmonary disease, cor pulmonale. 4. Hypothyroidism. 5. Anxiety. 6. Depression. 7. Gallstones. 8. Gastroparesis. PLAN:off BPAP,on nasal canula O at 2L. change to oral meds today. oral prednisone+oral bumex ?d/c back to home tomorrow. d/c french dvt +gi prophalaxis Plan Plan of Care Problems Medical Problems: (1) Acute hypercapnic respiratory failure Status: Acute (2) Hypertension Status: Acute (3) Person under investigation for COVID-19 Status: Acute Comment Review of Relevant I have reviewed the following items evaristo (where applicable) has been applied. Labs Laboratory Tests Test 02/06/21 04:00 White Blood Count 7.9 x10^3/uL (4.0-11.0) Red Blood Count 4.03 x10^6/uL (3.50-5.40) Hemoglobin 11.3 g/dL (12.0-15.5) Hematocrit 35.3 % (36.0-47.0) Mean Corpuscular Volume 88 fL (79-100) Mean Corpuscular Hemoglobin 28 pg (25-35) Mean Corpuscular Hemoglobin Concent 32 g/dL (31-37) Red Cell Distribution Width 15.7 % (11.5-14.5) Platelet Count 192 x10^3/uL (140-400) Neutrophils (%) (Auto) 88 % (31-73) Lymphocytes (%) (Auto) 10 % (24-48) Monocytes (%) (Auto) 2 % (0-9) Eosinophils (%) (Auto) 0 % (0-3) Basophils (%) (Auto) 0 % (0-3) Neutrophils # (Auto) 7.0 x10^3/uL (1.8-7.7) Lymphocytes # (Auto) 0.8 x10^3/uL (1.0-4.8) Monocytes # (Auto) 0.1 x10^3/uL (0.0-1.1) Eosinophils # (Auto) 0.0 x10^3/uL (0.0-0.7) Basophils # (Auto) 0.0 x10^3/uL (0.0-0.2) Segmented Neutrophils % 90 % (35-66) Band Neutrophils % 1 % (0-9) Lymphocytes % 7 % (24-48) Monocytes % 2 % (0-10) Platelet Estimate Adequate (ADEQUATE) Polychromasia Slight Hypochromasia Slight Anisocytosis Slight Sodium Level 144 mmol/L (136-145) Potassium Level 5.0 mmol/L (3.5-5.1) Chloride Level 102 mmol/L (98-107) Carbon Dioxide Level 38 mmol/L (21-32) Anion Gap 4 (6-14) Blood Urea Nitrogen 30 mg/dL (7-20) Creatinine 0.9 mg/dL (0.6-1.0) Estimated GFR (Cockcroft-Gault) 61.2 BUN/Creatinine Ratio 33 (6-20) Glucose Level 139 mg/dL (70-99) Calcium Level 8.3 mg/dL (8.5-10.1) Magnesium Level 2.0 mg/dL (1.8-2.4) Total Bilirubin 0.8 mg/dL (0.2-1.0) Aspartate Amino Transf (AST/SGOT) 12 U/L (15-37) Alanine Aminotransferase (ALT/SGPT) 16 U/L (14-59) Alkaline Phosphatase 79 U/L (46-116) Total Protein 6.7 g/dL (6.4-8.2) Albumin 3.4 g/dL (3.4-5.0) Albumin/Globulin Ratio 1.0 (1.0-1.7) Microbiology 02/03/21 Blood Culture - Preliminary, Resulted NO GROWTH AFTER 2 DAYS Medications Current Medications Bumetanide (Bumex) 1 mg DAILY PO ; Start 02/06/21 at 09:30; Status UNV Furosemide (Lasix) 20 mg DAILY IVP Last administered on 02/06/21at 08:31; Start 02/06/21 at 09:00 Magnesium Sulfate 50 ml @ 25 mls/hr 1X ONCE IV Last administered on 02/05/21at 09:30; Start 02/05/21 at 10:00; Stop 02/05/21 at 11:59; Status DC Metoclopramide HCl (Reglan) 5 mg TIDACHC PO ; Start 02/06/21 at 11:30; Status UNV Prednisone (Prednisone) 40 mg DAILY PO ; Start 02/07/21 at 09:00; Status UNV Prednisone (Prednisone) 50 mg 1X ONCE PO ; Start 02/06/21 at 09:30; Stop 02/06/21 at 09:31; Status UNV Vitals/I & O Vital Sign - Last 24 Hours 02/05/21 02/05/21 02/05/21 02/05/21 11:00 12:19 15:31 16:20 Temp 97.8 98.3 97.8 98.3 Pulse 78 82 Resp 18 16 B/P (MAP) 138/63 (88) 146/56 (86) Pulse Ox 91 92 O2 Delivery BiPAP/CPAP Nasal Cannula BiPAP/CPAP Nasal Cannula O2 Flow Rate 5.0 5.0 02/05/21 02/05/21 02/05/21 02/05/21 19:50 20:20 22:00 22:43 Temp 98.0 98.0 Pulse 71 Resp 22 22 B/P (MAP) 160/68 (98) Pulse Ox 91 94 95 O2 Delivery Nasal Cannula Room Air BiPAP/CPAP Nasal Cannula O2 Flow Rate 5.0 5.0 5.0 02/05/21 02/05/21 02/06/21 02/06/21 23:10 23:13 00:00 02:00 Temp 98.1 98.1 Pulse 70 Resp 22 20 B/P (MAP) 161/70 (100) Pulse Ox 92 92 94 94 O2 Delivery Nasal Cannula Room Air BiPAP/CPAP BiPAP/CPAP O2 Flow Rate 5.0 5.0 02/06/21 02/06/21 02/06/21 02/06/21 03:35 07:00 08:00 08:17 Temp 98.0 97.5 98.0 97.5 Pulse 71 62 Resp 21 16 B/P (MAP) 165/74 (104) 151/123 (132) Pulse Ox 96 96 94 O2 Delivery Room Air BiPAP/CPAP Room Air Nasal Cannula O2 Flow Rate 5.0 5.0 5.0 Intake and Output 02/05/21 02/05/21 02/06/21 15:00 23:00 07:00 Intake Total 60 ml 150 ml Output Total 1950 ml 450 ml 400 ml Balance -1950 ml -390 ml -250 ml Justifications for Admission Other Justification LAKE PANCHAL MD February 06, 2021 09:40
[2021-02-06] MEDS: BUMETANIDE 1 MG TABLET. PO SCH (10:41)
[2021-02-06] MEDS: METOCLOPRAMIDE 5 MG TABLET. PO SCH ×3 (10:41→21:00)
[2021-02-06 11:02] VITALS: BP 172/78
[2021-02-06 15:00] VITALS: BP 176/72
[2021-02-06 19:04] VITALS: BP 176/78
[2021-02-06] MEDS: ATORVASTATIN CALCIUM 40 MG TABLET. PO SCH (20:18)
[2021-02-06] MEDS: HYDROcodone/APAP 10/325 1 TAB TABLET PO PRN (20:19)
[2021-02-06 23:00] VITALS: BP 147/66
[2021-02-07 02:30] VITALS: BP 159/72
[2021-02-07 06:09] LABS: BASO % 0 % (0-3); EOS % 0 % (0-3); HEMATOCRIT 33.8 % (36.0-47.0); HEMOGLOBIN 10.7 g/dL (12.0-15.5); LYMPH # 1.4 x10^3/uL (1.0-4.8); LYMPH % 18 % (24-48); MEAN CORPUSCULAR HEMOGLOBIN 28 pg (25-35); MEAN CORPUSCULAR HGB CONC 32 g/dL (31-37); MEAN CORPUSCULAR VOLUME 88 fL (79-100); MONO # 0.7 x10^3/uL (0.0-1.1); MONO % 9 % (0-9); NEUT # 5.4 x10^3/uL (1.8-7.7); NEUT % 73 % (31-73); PLATELET COUNT 183 x10^3/uL (140-400); RED BLOOD COUNT 3.84 x10^6/uL (3.50-5.40); RED CELL DISTRIBUTION WIDTH 15.8 % (11.5-14.5); WHITE BLOOD COUNT 7.5 x10^3/uL (4.0-11.0)
[2021-02-07 07:00] VITALS: BP 157/70
[2021-02-07] MEDS: LUBIPROSTONE 24 MCG CAPSULE PO SCH (08:14)
[2021-02-07] MEDS: POTASSIUM CHLORIDE 20 MEQ TABLET.ER. PO SCH (08:14)
[2021-02-07] MEDS: CITALOPRAM 20 MG TABLET. PO SCH (08:14)
[2021-02-07] MEDS: GABAPENTIN 300 MG CAPSULE. PO SCH (08:14)
[2021-02-07] MEDS: AZITHROMYCIN 250 MG TABLET. PO SCH (08:16)
[2021-02-07] MEDS: BUMETANIDE 1 MG TABLET. PO SCH (08:16)
[2021-02-07] MEDS: SUCRALFATE 1 GM TABLET. PO SCH (08:16)
[2021-02-07] MEDS: METOCLOPRAMIDE 5 MG TABLET. PO SCH (08:16)
[2021-02-07] MEDS: FAMOTIDINE 20 MG TABLET. PO SCH (08:16)
--- NOTE | 2021-02-07 08:48 | PDOC ---
PROGRESS NOTES Date of Service: DATE: 02/07/21 TIME: 08:47 Subjective Subjective feels good ,want to go home Objective Objective Vital Signs Date Time Temp Pulse Resp B/P (MAP) Pulse Ox O2 Delivery O2 Flow Rate FiO2 02/07/21 07:00 97.8 65 16 157/70 (99) 5 Nasal Cannula 97.0 97.8 Intake and Output 02/07/21 07:00 Intake Total 500 ml Output Total 3200 ml Balance -2700 ml Intake Oral 500 ml Output Urine Total 3200 ml # Bowel Movements 1 Physical Exam Abdomen: Soft Heart: Regular rate, Normal S1 Extremities: No clubbing General: Alert, Cooperative Lungs: Clear to auscultation MUSCULOSKELETAL: No deformity Neuro: Normal speech Psych/Mental Status: Mental status NL Skin: No breakdown COMMENT braswell d/junior Diagnosis Problem List Problems Medical Problems: (1) Acute hypercapnic respiratory failure Status: Acute (2) Hypertension Status: Acute (3) Person under investigation for COVID-19 Status: Acute Assessment Assessment 1. Hypercapnic respiratory failure with CO2 retention. 2. Obstructive sleep apnea, uses BiPAP. 3. Chronic obstructive pulmonary disease, cor pulmonale. 4. Hypothyroidism. 5. Anxiety. 6. Depression. 7. Gallstones. 8. Gastroparesis. PLAN: d/c home today. off BPAP,on nasal canula O at 2L. change to oral meds today. oral prednisone+oral bumex d/junior braswell dvt +gi prophalaxis Plan Plan of Care Problems Medical Problems: (1) Acute hypercapnic respiratory failure Status: Acute (2) Hypertension Status: Acute (3) Person under investigation for COVID-19 Status: Acute Comment Review of Relevant I have reviewed the following items evaristo (where applicable) has been applied. Labs Laboratory Tests Test 02/07/21 04:20 White Blood Count 7.5 x10^3/uL (4.0-11.0) Red Blood Count 3.84 x10^6/uL (3.50-5.40) Hemoglobin 10.7 g/dL (12.0-15.5) Hematocrit 33.8 % (36.0-47.0) Mean Corpuscular Volume 88 fL (79-100) Mean Corpuscular Hemoglobin 28 pg (25-35) Mean Corpuscular Hemoglobin Concent 32 g/dL (31-37) Red Cell Distribution Width 15.8 % (11.5-14.5) Platelet Count 183 x10^3/uL (140-400) Neutrophils (%) (Auto) 73 % (31-73) Lymphocytes (%) (Auto) 18 % (24-48) Monocytes (%) (Auto) 9 % (0-9) Eosinophils (%) (Auto) 0 % (0-3) Basophils (%) (Auto) 0 % (0-3) Neutrophils # (Auto) 5.4 x10^3/uL (1.8-7.7) Lymphocytes # (Auto) 1.4 x10^3/uL (1.0-4.8) Monocytes # (Auto) 0.7 x10^3/uL (0.0-1.1) Eosinophils # (Auto) 0.0 x10^3/uL (0.0-0.7) Basophils # (Auto) 0.0 x10^3/uL (0.0-0.2) Microbiology 02/03/21 Blood Culture - Preliminary, Resulted NO GROWTH AFTER 3 DAYS Medications Current Medications Bumetanide (Bumex) 1 mg DAILY PO Last administered on 02/07/21 08:16; Start 02/06/21 at 09:30 Furosemide (Lasix) 20 mg DAILY IVP Last administered on 02/06/21at 08:31; Start 02/06/21 at 09:00; Stop 02/06/21 at 09:37; Status DC Metoclopramide HCl (Reglan) 5 mg TIDACHC PO Last administered on 02/07/21 08:16; Start 02/06/21 at 11:30 Prednisone (Prednisone) 40 mg DAILY PO Last administered on 02/07/21at 08:16; Start 02/07/21 at 09:00 Prednisone (Prednisone) 50 mg 1X ONCE PO Last administered on 02/06/21at 10:41; Start 02/06/21 at 09:30; Stop 02/06/21 at 09:54; Status DC Vitals/I & O Vital Sign - Last 24 Hours 02/06/21 02/06/21 02/06/21 02/06/21 11:02 12:09 15:00 16:00 Temp 97.6 98.1 97.6 98.1 Pulse 75 72 Resp 14 14 B/P (MAP) 172/78 (109) 176/72 (106) Pulse Ox 93 87 O2 Delivery BiPAP/CPAP Nasal Cannula BiPAP/CPAP Nasal Cannula O2 Flow Rate 5.0 5.0 02/06/21 02/06/21 02/06/21 02/06/21 19:04 19:39 20:19 20:49 Temp 98.0 98.0 Pulse 72 Resp 14 20 0 B/P (MAP) 176/78 (110) Pulse Ox 95 O2 Delivery Nasal Cannula Room Air Nasal Cannula Nasal Cannula O2 Flow Rate 5.0 5.0 5.0 5.0 02/06/21 02/06/21 02/07/21 02/07/21 21:08 23:00 00:24 01:51 Temp 98.1 98.1 Pulse 50 Resp 14 B/P (MAP) 147/66 (93) Pulse Ox 97 97 97 96 O2 Delivery BiPAP/CPAP BiPAP/CPAP BiPAP/CPAP BiPAP/CPAP 02/07/21 02/07/21 02/07/21 02:30 04:09 07:00 Temp 98.0 97.8 98.0 97.8 Pulse 55 65 Resp 16 16 B/P (MAP) 159/72 (101) 157/70 (99) Pulse Ox 99 96 5 O2 Delivery BiPAP/CPAP BiPAP/CPAP Nasal Cannula O2 Flow Rate 97.0 Intake and Output 02/06/21 02/06/21 02/07/21 15:00 23:00 07:00 Intake Total 400 ml 100 ml Output Total 2100 ml 600 ml 500 ml Balance -2100 ml -200 ml -400 ml Justifications for Admission Other Justification LAKE PANCHAL MD February 07, 2021 08:48
[2021-02-07] MEDS: BUDESONIDE 0.5 MG/2 ML NEBU. NEB SCH (08:51)
[2021-02-07] MEDS: IPRATRPIUM/ALBUTEROL 0.5/2.5MG 3 ML NEBU. NEB SCH ×2 (08:51→12:37)
[2021-02-07] MEDS ORDERED: METO5TAB PO (08:53)
[2021-02-07] MEDS ORDERED: PRED20TA PO (08:53)
--- NOTE | 2021-02-07 08:54 | SNU/HH DC ---
DISCHARGE WITH HOME HEALTH DISCHARGE INFORMATION: Discharge Date: February 07, 2021 Final Diagnosis: Problems Medical Problems: (1) Acute hypercapnic respiratory failure Status: Acute (2) Hypertension Status: Acute (3) Person under investigation for COVID-19 Status: Acute Condition on Discharge: Stable CODE STATUS: Code Status: Full HOME HEALTH: Face to Face: I certify this patient is under my care and that I, or a nurse practitioner or physician's sales assistants and salespersons working with me, had a face to face encounter that meets the physician face to face encounter requirements with this patient on []. Medical Complications: COPD RN For Eval/Treatment: Yes Physical Therapy For: Evalulation/Treatment Occupational Therapy For: Evaluation/Treatment INSURANCE VERIFICATION CLERK For: Community Resources Pt Meets Homebound Status: Poor coordination w/ amb. POST DISCHARGE ORDERS: Activity Instructions for Disc: Activity as tolerated Weight Bearing Status after Di: Full weight bearing, As tolerated DIET AFTER DISCHARGE: Cardiac CHECKS AFTER DISCHARGE: Checks after discharge: Check blood press - daily, Weigh Yourself Daily TREATMENT/EQUIPMENT ORDERS: Adaptive Equipment Issued: None Discharge Respiratory Equipmen: Oxygen CERTIFICATION STATEMENT: Certification Statement: Certification Statement: Based on the above finding, I certify that this patient is confined to the home and needs intermittent detention care, physical therapy and/or speech therapy, or continues to need occupational therapy.~ This patient is under my care, and I have initiated the establishment of the plan of care.~ This patient will be followed by myself or a community physician who will periodically review the plan of care. Home Meds Active Scripts Prednisone (PREDNISONE) 20 Mg Tablet, 1 TAB PO DAILY for copd, #5 TAB Prov:LAKE PANCHAL MD 02/07/21 Metoclopramide Hcl (METOCLOPRAMIDE HCL) 5 Mg Tablet, 5 MG PO TIDACHC for gastroperesis for 30 Days, #120 TAB Prov:LAKE PANCHAL MD 02/07/21 Reported Medications Famotidine (FAMOTIDINE) 20 Mg Tablet, 20 MG PO BID for gerd , TAB 02/04/21 Sucralfate (SUCRALFATE) 1 Gm Tablet, 1 TAB PO BID for gerd, #90 TAB 11 Refills 02/04/21 Hydrocodone Bit/Acetaminophen (HYDROCODONE-APAP 10-325 ) 1 Tab Tablet, 1 TAB PO HS PRN for PAIN, TAB 0 Refills 02/04/21 Bumetanide (BUMETANIDE) 1 Mg Tablet, 1 TAB PO DAILY for CHF, #90 TAB 1 Refill 11/14/19 Lubiprostone (AMITIZA) 24 Mcg Capsule, 1 CAP PO DAILY for unknown for 30 Days, #30 CAP 0 Refills 11/14/19 Budesonide/Formoterol Fumarate (SYMBICORT 160-4.5 MCG INHALER) 10.2 Gm Hfa.aer.ad, 2 PUFF IH BID for unknown, #10.6 GM 3 Refills 11/14/19 Nystatin (NYSTATIN) 15 Gm Cream..g., 1 ALICE TP BID for skin irritation, #30 GM 11/14/19 Triamcinolone Acetonide (TRIAMCINOLONE ACETONIDE 0.1% OINT) 15 Gm Oint...g., 1 ALICE TP BID for WOUND CARE, #1 TUBE MIX WITH EUCERIN DIRECTED BY PHYSICIAN 11/14/19 Albuterol Sulfate (Proair Hfa) 8.5 Gm Hfa.aer.ad, 2 PUFF IH PRN Q4-6HRS PRN for wheezing for 21 Days, #1 INHALER 0 Refills 11/14/19 Gabapentin (GABAPENTIN ) 300 Mg Capsule, 300 MG PO TID, CAP 04/30/18 Rosuvastatin Calcium (CRESTOR) 10 Mg Tablet, 10 MG PO HS for FOR CHOLESTEROL, #30 TAB 0 Refills 02/19/18 Escitalopram Oxalate (Escitalopram Oxalate) 10 Mg Tablet, 10 MG PO DAILY, TAB 02/19/18 Levothyroxine Sodium (LEVOTHYROXINE SODIUM) 175 Mcg Tablet, 175 MCG PO DAILYAC for THYROID SUPPLEMENT, #30 TAB 0 Refills 02/19/18 Ondansetron Hcl (ONDANSETRON HCL) 4 Mg Tablet, 4 MG PO BID PRN for NAUSEA/VOMITING, TAB 02/19/18 Potassium Chloride (POTASSIUM CHLORIDE ) 20 Meq Tablet.er, 20 MEQ PO BIDWMEALS for supplement, TAB.SR 02/19/18 LAKE PANCHAL MD February 07, 2021 08:54
[2021-02-07] MEDS ORDERED: predniSONE 10 MG TABLET PO SCH (09:00)
[2021-02-07 11:00] VITALS: BP 193/80
--- NOTE | 2021-02-07 11:12 | NUR ---
SS following up with discharge planning. SS reviewed pt chart and discussed with pt RN. Pt is currently requiring oxygen at two liters nasal canula. COVID19 negative. Pt has home oxygen. PT/OT ordered. Discharge orders on the chart for home with home healthcare. SS contacted pt's daughter, Chio, , and discussed. Pt's daughter agreeable to home healthcare with [facility], ; fax [phone]. SS was informed that pt needs transportation to home. Pt is bed bound and has private duty caregiver at home. SS phoned and faxed discharge orders and referral to [facility]. Pt will discharge today and return to home at 1500 via [facility] ambulance, . Pt, pt's daughter, and pt's RN notified.
--- NOTE | 2021-02-07 11:38 | PDOC ---
PULMONARY PROGRESS NOTES DATE: 02/07/21 TIME: 11:35 Subjective remains on NC oxygen 2 liters no increased SOA or cough or CP HTN Vitals Vital Signs Date Time Temp Pulse Resp B/P (MAP) Pulse Ox O2 Delivery O2 Flow Rate FiO2 02/07/21 08:55 96 Nasal Cannula 2.0 02/07/21 07:00 97.8 65 16 157/70 (99) 97.8 ROS: No Nausea, No Chest Pain, No Abdominal Pain, No Increase Cough General: Alert, Oriented X4 Lungs: Clear Cardiovascular: S1, S2 Abdomen: Soft, Non-tender, Other (obese ) Neuro Exam: Alert, Oriented Extremities: No Edema Skin: Warm, Dry Labs Laboratory Tests Test 02/06/21 04:00 02/07/21 04:20 White Blood Count 7.9 x10^3/uL (4.0-11.0) 7.5 x10^3/uL (4.0-11.0) Red Blood Count 4.03 x10^6/uL (3.50-5.40) 3.84 x10^6/uL (3.50-5.40) Hemoglobin 11.3 g/dL (12.0-15.5) 10.7 g/dL (12.0-15.5) Hematocrit 35.3 % (36.0-47.0) 33.8 % (36.0-47.0) Mean Corpuscular Volume 88 fL (79-100) 88 fL (79-100) Mean Corpuscular Hemoglobin 28 pg (25-35) 28 pg (25-35) Mean Corpuscular Hemoglobin Concent 32 g/dL (31-37) 32 g/dL (31-37) Red Cell Distribution Width 15.7 % (11.5-14.5) 15.8 % (11.5-14.5) Platelet Count 192 x10^3/uL (140-400) 183 x10^3/uL (140-400) Neutrophils (%) (Auto) 88 % (31-73) 73 % (31-73) Lymphocytes (%) (Auto) 10 % (24-48) 18 % (24-48) Monocytes (%) (Auto) 2 % (0-9) 9 % (0-9) Eosinophils (%) (Auto) 0 % (0-3) 0 % (0-3) Basophils (%) (Auto) 0 % (0-3) 0 % (0-3) Neutrophils # (Auto) 7.0 x10^3/uL (1.8-7.7) 5.4 x10^3/uL (1.8-7.7) Lymphocytes # (Auto) 0.8 x10^3/uL (1.0-4.8) 1.4 x10^3/uL (1.0-4.8) Monocytes # (Auto) 0.1 x10^3/uL (0.0-1.1) 0.7 x10^3/uL (0.0-1.1) Eosinophils # (Auto) 0.0 x10^3/uL (0.0-0.7) 0.0 x10^3/uL (0.0-0.7) Basophils # (Auto) 0.0 x10^3/uL (0.0-0.2) 0.0 x10^3/uL (0.0-0.2) Segmented Neutrophils % 90 % (35-66) Band Neutrophils % 1 % (0-9) Lymphocytes % 7 % (24-48) Monocytes % 2 % (0-10) Platelet Estimate Adequate (ADEQUATE) Polychromasia Slight Hypochromasia Slight Anisocytosis Slight Sodium Level 144 mmol/L (136-145) Potassium Level 5.0 mmol/L (3.5-5.1) Chloride Level 102 mmol/L (98-107) Carbon Dioxide Level 38 mmol/L (21-32) Anion Gap 4 (6-14) Blood Urea Nitrogen 30 mg/dL (7-20) Creatinine 0.9 mg/dL (0.6-1.0) Estimated GFR (Cockcroft-Gault) 61.2 BUN/Creatinine Ratio 33 (6-20) Glucose Level 139 mg/dL (70-99) Calcium Level 8.3 mg/dL (8.5-10.1) Magnesium Level 2.0 mg/dL (1.8-2.4) Total Bilirubin 0.8 mg/dL (0.2-1.0) Aspartate Amino Transf (AST/SGOT) 12 U/L (15-37) Alanine Aminotransferase (ALT/SGPT) 16 U/L (14-59) Alkaline Phosphatase 79 U/L (46-116) Total Protein 6.7 g/dL (6.4-8.2) Albumin 3.4 g/dL (3.4-5.0) Albumin/Globulin Ratio 1.0 (1.0-1.7) Laboratory Tests Test 02/07/21 04:20 White Blood Count 7.5 x10^3/uL (4.0-11.0) Red Blood Count 3.84 x10^6/uL (3.50-5.40) Hemoglobin 10.7 g/dL (12.0-15.5) Hematocrit 33.8 % (36.0-47.0) Mean Corpuscular Volume 88 fL (79-100) Mean Corpuscular Hemoglobin 28 pg (25-35) Mean Corpuscular Hemoglobin Concent 32 g/dL (31-37) Red Cell Distribution Width 15.8 % (11.5-14.5) Platelet Count 183 x10^3/uL (140-400) Neutrophils (%) (Auto) 73 % (31-73) Lymphocytes (%) (Auto) 18 % (24-48) Monocytes (%) (Auto) 9 % (0-9) Eosinophils (%) (Auto) 0 % (0-3) Basophils (%) (Auto) 0 % (0-3) Neutrophils # (Auto) 5.4 x10^3/uL (1.8-7.7) Lymphocytes # (Auto) 1.4 x10^3/uL (1.0-4.8) Monocytes # (Auto) 0.7 x10^3/uL (0.0-1.1) Eosinophils # (Auto) 0.0 x10^3/uL (0.0-0.7) Basophils # (Auto) 0.0 x10^3/uL (0.0-0.2) Medications Active Scripts Medications Dose Route/Sig Max Daily Dose Days Date Category Dose Instructions Famotidine 20 Mg Tablet 20 Mg PO BID 02/04/21 Reported Sucralfate 1 Gm Tablet 1 Tab PO BID 02/04/21 Reported Hydrocodone-Apap 10-325 (Hydrocodone Bit/Acetaminophen) 1 Tab Tablet 1 Tab PO HS PRN 02/04/21 Reported Bumetanide 1 Mg Tablet 1 Tab PO DAILY 11/14/19 Reported Amitiza (Lubiprostone) 24 Mcg Capsule 1 Cap PO DAILY 30 11/14/19 Reported Symbicort 160-4.5 Mcg Inhaler (Budesonide/Formoterol Fumarate) 10.2 Gm Hfa.aer.ad 2 Puff IH BID 11/14/19 Reported Nystatin 15 Gm Cream..g. 1 Rodolfo TP BID 11/14/19 Reported Triamcinolone Acetonide 0.1% Oint (Triamcinolone Acetonide) 15 Gm Oint...g. 1 Rodolfo TP BID 11/14/19 Reported MIX WITH EUCERIN DIRECTED BY PHYSICIAN Proair Hfa (Albuterol Sulfate) 8.5 Gm Hfa.aer.ad 2 Puff IH PRN Q4-6HRS PRN 21 11/14/19 Reported Gabapentin (Gabapentin) 300 Mg Capsule 300 Mg PO TID 04/30/18 Reported Crestor (Rosuvastatin Calcium) 10 Mg Tablet 10 Mg PO HS 02/19/18 Reported Escitalopram Oxalate 10 Mg Tablet 10 Mg PO DAILY 02/19/18 Reported Levothyroxine Sodium 175 Mcg Tablet 175 Mcg PO DAILYAC 02/19/18 Reported Ondansetron Hcl 4 Mg Tablet 4 Mg PO BID PRN 02/19/18 Reported Potassium Chloride (Potassium Chloride) 20 Meq Tablet.er 20 Meq PO BIDWMEALS 02/19/18 Reported Impression . IMPRESSION: 1. Acute on chronic hypoxemic, hypercapnic respiratory failure.--stable 2. Acute exacerbation of chronic obstructive pulmonary disease.--stable 3. Obstructive sleep apnea. 4. Acute on chronic cor pulmonale. 5. Hypothyroidism. 6. Morbid obesity. 7. Depression. Plan . Plan Continue supplemental oxygen, do not increase above 2 liter NC Continue BIPAP/CPAP at Q HS and with day time napping Continue NEBS Continue steroids, with taper Continue to diurese follow in office PRN Educated on importance of weight loss PT/OT DVT/GI PPX. D/W RN ok to DC in am from our standpoint GOLDEN PEREZ MD February 07, 2021 11:37
--- NOTE | 2021-02-07 15:05 | NUR ---
Patient discharged home per EMS stretcher. Belongings in room sent with patient, including clothes brought in today and cell phone. Daughter verbalized that pt had another gown when she came to er, but does not want to pursue finding it. Instructions were reviewed with patient, copy sent home with her. Unable to reach daughter at this time for instructions. IV's x 3 discontinued.
== END 2021-02-07 15:10 | disposition home health service (06) | DRG 189 ==
LOC: ER 13:41 → ED HOLD 18:47 → 2 SOUTH 19:59
PROVIDERS: ADMIT Internal Medicine; ATTEND Internal Medicine
PROC: 5A09357 Assistance with Respiratory Ventilation, Less than 24 Consecutive Hours, Continuous Positive Airway Pressure (ICD-10-PCS; 2021-02-03)
PROC: 5A09357 Assistance with Respiratory Ventilation, Less than 24 Consecutive Hours, Continuous Positive Airway Pressure (ICD-10-PCS; 2021-02-04)
PROC: 5A09357 Assistance with Respiratory Ventilation, Less than 24 Consecutive Hours, Continuous Positive Airway Pressure (ICD-10-PCS; 2021-02-05)
PROC: 5A09357 Assistance with Respiratory Ventilation, Less than 24 Consecutive Hours, Continuous Positive Airway Pressure (ICD-10-PCS; principal; 2021-02-06)
PROC: 5A09357 Assistance with Respiratory Ventilation, Less than 24 Consecutive Hours, Continuous Positive Airway Pressure (ICD-10-PCS; 2021-02-07)
DX: J96.22 Acute and chronic respiratory failure with hypercapnia (principal); E87.2 Acidosis; J44.1 Chronic obstructive pulmonary disease with (acute) exacerbation; Z68.44 Body mass index [BMI] 60.0-69.9, adult; J96.21 Acute and chronic respiratory failure with hypoxia; E03.9 Hypothyroidism, unspecified; E66.01 Morbid (severe) obesity due to excess calories; E86.0 Dehydration; F32.9 Major depressive disorder, single episode, unspecified; F41.9 Anxiety disorder, unspecified; G47.33 Obstructive sleep apnea (adult) (pediatric); I11.0 Hypertensive heart disease with heart failure; I50.810 Right heart failure, unspecified; K31.84 Gastroparesis; K57.90 Diverticulosis of intestine, part unspecified, without perforation or abscess without bleeding; K80.20 Calculus of gallbladder without cholecystitis without obstruction; K82.8 Other specified diseases of gallbladder; Z20.822 Contact with and (suspected) exposure to COVID-19; Z87.891 Personal history of nicotine dependence; G89.29 Other chronic pain; M19.90 Unspecified osteoarthritis, unspecified site; Z88.8 Allergy status to other drugs, medicaments and biological substances; E83.42 Hypomagnesemia; I27.81 Cor pulmonale (chronic)
CPT/HCPCS: 36415; 36600; 70450; 71045; 71275; 74174; 80048; 80053; 80076; 80202; 80307; 81001; 82550; 82805; 83605; 83735; 83880; 84145; 84484; 85007; 85025; 87040; 93005; 94640; 94660; 94760; 96365; 96367; 96375; 99285; J0360; J1650; J1940; J2543; J2920; J3370; J3475; J7030; J7040; J7050; J7512; Q9967; U0003; U0005; 92526-GN; G0378; J7626